=== PATIENT | male | born 1930 | race Caucasian/White ===

== ENCOUNTER 2017-01-08 21:52 | Inpatient (IN) ==
[2017-01-08] MEDS ORDERED: OFIRMEV 1000 MG/ISOTONIC SOLN 1,000 MG/100 ML BOTTLE IV ONE (22:05)
[2017-01-08] MEDS ORDERED: ZOFRAN IV ONE (22:05)
[2017-01-08] MEDS ORDERED: MORPHINE IV ONE (22:06)
[2017-01-08] MEDS: NS 1,000 ML IV ONE (22:25)
[2017-01-08] MEDS ORDERED: NS 1,000 ML IV ONE ×2 (22:49→23:42)
[2017-01-08] MEDS ORDERED: ZOSYN 3.375 GM/NS 3.375 GM/50 ML IVPB IV ONE (22:54)
[2017-01-08] MEDS ORDERED: VANCOMYCIN 1 GM/NS 1 GM/250 ML IVPB IV ONE (22:55)
[2017-01-08 23:21] LABS: BASO% 0.1 % (0.0-0.8); EOS# 0.02 X1000 (0.0-0.7); EOS% 0.2 % (0.0-10.0); HEMATOCRIT 25.8 % (42.0-52.0); HEMOGLOBIN 8.5 g/dL (14.0-18.0); IMM GRAN# 0.02 X1000 (0.0-0.04); IMM GRAN% 0.2 % (0.0-0.5); LYMPH# 0.62 X1000 (1.2-3.4); LYMPH% 5.9 % (20.5-51.1); MANUAL DIFF NEEDED? YES; MCH 25.1 PG (27-31); MCHC 32.9 g/dL (33-37); MCV 76.1 FL (81-99); MONO# 0.18 X1000 (0.11-0.59); MONO% 1.7 % (1.7-9.3); MPV 8.8 FL (7.4-10.4); NEUT% 91.9 % (42.2-75.2); PLT 826 X1000 (130-400); RBC 3.39 XMIL (4.7-6.1)
[2017-01-08] MEDS ORDERED: XYLOCAINE 2% JELLY UROJECT TOP ONE (23:30)
[2017-01-08] MEDS ORDERED: XYLOCAINE 2% JELLY UROJECT ONE (23:30)
[2017-01-08 23:35] LABS: ALBUMIN 2.8 g/dL (3.5-5.0); CALCIUM 8.1 mg/dL (8.8-10.2); POTASSIUM 4.4 mmol/L (3.5-5.1); TOTAL BILIRUBIN 0.3 mg/dL (0.20-1.00); TOTAL PROTEIN 5.4 g/dL (6.3-8.3)
[2017-01-08] MEDS ORDERED: HUMULIN R SUBQ ONE (23:41)
[2017-01-08] MEDS ORDERED: LEVOPHED 8 MG in D5 1/2 NS 250 ML IV SCH (23:45)
[2017-01-08 23:49] LABS: BANDS 28 % (0-1); EOS 1 % (1-10); HYPOCHROM 2+; LYMPHS 14 % (21-51); METAMYELOCYTES 2 %; MONO 2 % (1-9)
[2017-01-08 23:50] LABS: LARGE PLATELETS OCCASIONAL
--- NOTE | 2017-01-09 00:03 | PROVIDER DOCUMENTATION ---
This chart was entered by Jaylin Delacruz Scribe, acting as scribe for Urban Hector MD. HPI-Abdominal Pain/GI Problem - General Chief Complaint: Abdominal Pain Stated Complaint: abd pain Time Seen by Provider: 01/08/17 21:55 Source: patient, family Allergies/Adverse Reactions: Patient Allergies Allergy/AdvReac Type Severity Reaction Status Date / Time No Known Allergies Allergy Verified 01/08/17 22:02 Home Medications: Home Medication List Medication Instructions Recorded Confirmed Last Taken Type Dicyclomine [Bentyl] 20 mg PO DIRECTED 01/08/17 01/08/17 01/07/17 History Fenofibrate 160 mg PO DAILY 01/08/17 01/08/17 01/07/17 History Irbesartan [Avapro] 300 mg PO DAILY 01/08/17 01/08/17 01/07/17 History Lansoprazole [Prevacid] 30 mg PO DIRECTED 01/08/17 01/08/17 01/07/17 History Pitavastatin [Livalo] 2 mg PO DAILY 01/08/17 01/08/17 01/07/17 History Pregabalin [Lyrica] 100 mg PO BID 01/08/17 01/08/17 01/07/17 History - History of Present Illness-ABD Nature of Presenting Problems: PT IS A 86YOM PRESENTING TO THE ED C/O ABD PAIN. PTS STATES THAT PT HAS HAD ABD PAIN FOR SEVERAL MONTHS. PTS STATES THAT THEY SAW PCP ON SATURDAY AND STILL HASN'T GOTTEN ANY BETTER. PT STATES HE HAS HAD 3 LOOSE STOOLS TODAY AND NAUSEA. NO VOMITING AND FEVER WAS RECORDED UPON ARRIVAL. NO KNOWN KNOWLEDGE OF FEVER PRIOR. NO CP, SOB OR OTHER COMPLAINTS AT THIS TIME Abdominal Pain Onset Location: reports: generalized abdomen Pain Radiation: reports: no radiation Quality of Pain: reports: aching Severity in ED: reports: mild Onset/Duration: reports: gradual Timing: reports: still present Activities at Onset: reports: light activity Exposure to sick contacts?: No Modifying Factors: improves with: nothing Associated Symptoms: reports: diarrhea, fatigue, fever/chills, loss of appetite , malaise, nausea. denies: back/neck pain, chest pain, shortness of breath, pain with inspiration, vomiting Last BM: this evening Dark Stools Present?: reports: none noticed Rectal Bleeding: reports: none # of Diarrhea Episodes: 3 Rectal Pain: reports: none Emesis Description: reports: none Bruising or Bleeding Gums?: No Similar Symptoms Previously?: Yes Recently seen or treated by another doctor?: No Review of Systems - Adult - REVIEW OF SYSTEMS - ADULT Constitutional: reports: see HPI, chills, fever. denies: fatique Eyes: reports: no symptoms reported Ears, Nose, Mouth & Throat: reports: no symptoms reported Cardiovascular: reports: no symptoms reported Respiratory: reports: no symptoms reported Gastrointestinal: reports: see HPI, abdominal pain, diarrhea, nausea. denies: vomiting Genitourinary: reports: no symptoms reported Musculoskeletal: reports: no symptoms reported Integumentary: reports: no symptoms reported Neurological: reports: no symptoms reported Psychiatric: reports: no symptoms reported Endocrine: reports: no symptoms reported Hematologic/Lymphatic: reports: no symptoms reported Allergic/Immunologic: reports: no symptoms reported All Other Systems: Reviewed and Negative Past History - Adult - PAST MEDICAL HISTORY-ADULT Review of Records: reports: Old Records Reviewed, Nursing Assessment Review, Medications Reviewed, Social history reviewed & non-contributory. Major Childhood Illnesses: reports: denies history Cardiovascular: reports: denies history Respiratory: reports: denies history Gastrointestinal: reports: denies history Obstetrical/Gynecological: reports: denies history Genitourinary: reports: denies history Musculoskeletal: reports: denies history Neurological: reports: denies history Endocrine/Immune: reports: denies history Other Conditions: reports: denies history - IMMUNIZATION STATUS Childhood Immunizations: See Nurse Assessment Flu Vaccine: See Nurse Assessment - FAMILY HISTORY Family History: reviewed, not pertinent - SOCIAL HISTORY Smoking: non-smoker Substance Use: none/never Alcohol Use Frequency: never Living Situation: family Physical Exam-General - PHYSICAL EXAM-ADULT Initial Vital Signs Reviewed: Yes - CONSTITUTIONAL General Appearance: appears well, alert, mild distress - EYES Eyes: PERRL/EOMI, pink conjunctivae - HEAD, EARS, NOSE, MOUTH & THROAT HENMT: normocephalic/atraumatic, moist mucous membranes, normal ENT inspection, TMs normal, pharynx normal - NECK Neck: non-tender, full range of motion, supple, normal inspection - RESPIRATORY Respiratory: chest non-tender, lungs clear, normal breath sounds, no pleuratic chest pain, no accessory muscle use, respiratory distress, increased rate. negative: no respiratory distress - CARDIOVASCULAR Cardiovascular: normal peripheral pulses, no edema, no gallop, no JVD, no murmur , tachycardia. negative: regular rate, rhythm - GASTROINTESTINAL (ABDOMEN) Abdominal Exam: normal bowel sounds, soft, no organomegaly, no pulsatile mass, tenderness. 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 as tested, grossly normal, no motor/sensory deficits - PSYCHIATRIC Psych/Mental Status: normal mood/affect, normal thought content, normal thought process, oriented x 3 Progress - PLAN OF CARE/RESULTS Progress/Plan/Lab Results: Vital Signs - 8 hr 01/08/17 21:55 Temperature 103 F H Pulse Rate 135 H Respiratory Rate 49 H Blood Pressure 118/55 O2 Sat by Pulse Oximetry 88 L Orders Category Date Time Status Cardiac Monitoring DIRECTED Care 01/08/17 22:04 Active IV Insertion ORDERED Care 01/08/17 22:04 Active Notify MD of + Sepsis Screen NOW Care 01/08/17 22:04 Active ABDOMEN/PELVIS W/O CONTRAST [CT] Stat Exams 01/08/17 22:06 Ordered CHEST-PORTABLE [RAD] Stat Exams 01/08/17 22:05 Ordered BLOOD CULTURE [BLDCUL] Stat Lab 01/08/17 22:31 Ordered CBC WITH DIFF [HEME] Stat Lab 01/08/17 22:31 Ordered CK PROFILE [SP CHEM] Stat Lab 01/08/17 22:31 Ordered COMPREHENSIVE METABOLIC PANEL [CHEM] Stat Lab 01/08/17 22:31 Ordered LACTATE, PLASMA [CHEM] Stat Lab 01/08/17 22:[address]IME WITH INR [address] [COAG] Stat Lab 01/08/17 22:[address] [COAG] Stat Lab 01/08/17 22:31 Ordered TROPONIN T Stat Lab 01/08/17 22:[address] W/POSS RFLX CULT [URINALYSIS] Stat Lab 01/08/17 22:31 Ordered 0.9% Sodium Chloride Inj [Ns] 1,000 ml Med 01/08/17 22:05 Active IV 999 mls/hr 0.9% Sodium Chloride Inj [Ns] 1,000 ml Med 01/08/17 22:49 Active IV 999 mls/hr Acetaminophen [Ofirmev 1000 mg/Isotonic Soln] Med 01/08/17 22:05 Discontinued 1,000 mg in 100 ml IV NOW Morphine Med 01/08/17 22:06 Discontinued 4 mg IV NOW ONE Ondansetron [Zofran] Med 01/08/17 22:05 Discontinued 4 mg IV NOW ONE Oxygen Device Stat Oth 01/08/17 22:04 Active 2255 PT BLOOD PRESSURE HAS DROPPED 72/[address] HECTOR ORDERS 2 LARGE BORE IV WITH FLUID RESUSCITATION. Result Diagrams: 01/08/17 22:35 01/08/17 22:35 - REASSESSMENT Reassessment #1 Time Reassessed: 23:31 (PT STATES PN IS DOWN TO 7 FROM 10) Status: improving (PT NOT SHAKING BADLY FROM FEVER AND CHILLS STATES FEELING MILDLY BETTER) - XRAY 1 XRAY: Bilateral XRAY Study: Chest Impression: Normal (TAWNY) Departure - Departure Date of Disposition Decision: 01/09/17 Time of Disposition Decision: 00:02 DIAGNOSIS: Septic shock Disposition: ADMITTED INPATIENT 09 Certified Medical Emergency: Emergent Condition: Serious Referrals and Follow-Ups: Caesar Castro MD [Primary Care Provider] - - Critical Care Note This patient required my direct & personal management of CC.: Yes Total Time (mins): 90 (DR HECTOR) Critical Care Statement: This patient required my direct personal management to treat or rule out processes, the absence of which, could potentiallly result in sudden, clinically significant life or limb threatening deterioration. This chart was documented by the indicated scribe, (Jaylin Delacruz Scribe) and accurately reflects the services I performed and decisions made by me, Urban Hector MD, as attested by the provider's signature.
[2017-01-09] MEDS ORDERED: TYLENOL PO PRN (00:04)
[2017-01-09] MEDS ORDERED: NS 1,000 ML IV ONE ×2 (00:04→07:00)
[2017-01-09] MEDS ORDERED: ZOFRAN IV PRN ×2 (00:04→06:12)
[2017-01-09 00:15] LABS: INR 1.56 (0.86-1.15); PROTIME 18.9 Seconds (12.1-15.5)
[2017-01-09 00:16] LABS: PTT PL 30.3 Seconds (22.6-43.9)
[2017-01-09] MEDS ORDERED: HUMULIN R (PARKWAY) ONE (00:22)
[2017-01-09 01:42] LABS: URINE SOURCE CATH
[2017-01-09 01:45] LABS: BILIRUBIN URINE NEGATIVE (NEGATIVE); CLARITY VERY CLOUDY (CLEAR); COLOR YELLOW; GLUCOSE URINE NEGATIVE (NEGATIVE); URINE EPITHELIAL CELLS <10 /HPF (<10); URINE RBC <10 /HPF (<10); URINE WBC <10 /HPF (<10)
[2017-01-09 01:46] LABS: BLOOD URINE TRACE (NEGATIVE); LEUKOCYTES URINE TRACE (NEGATIVE); NITRITE URINE NEGATIVE (NEGATIVE); PROTEIN URINE 2+(100 mg/dL) mg/dL (NEGATIVE); URINE CULTURE PL NEEDED? YES; UROBILINOGEN URINE NORMAL
[2017-01-09] MEDS ORDERED: HURRICAINE SPRAY (DOSE) ONE (02:58)
[2017-01-09] MEDS ORDERED: ROBINUL ONE (03:02)
[2017-01-09] MEDS ORDERED: XYLOCAINE-MPF 2% ONE (03:02)
[2017-01-09] MEDS ORDERED: QUELICIN (DOSE) ONE (03:05)
[2017-01-09] MEDS ORDERED: FENTANYL ONE (03:07)
--- NOTE | 2017-01-09 03:21 | HISTORY AND PHYSICAL ---
ADMITTING DIAGNOSIS: Perforated hollow viscus. HISTORY OF PRESENT ILLNESS: This is an 86-year-old, male presenting with septic shock and abdominal pain to the emergency department at [facility]. He has been worked up by his primary care physician for pain for several months. He saw the primary care physician on Saturday and had not gotten any better. He did have a history of loose stools today and nausea but then developed severe abdominal pain. His pain had been mostly in the bilateral lower quadrants but is general abdominal pain now, described as aching and increasing in intensity. He has never had pain like this before. When he was evaluated in the emergency department again, he was found to need support with blood pressure medicine as he was hypotensive. He was started on fluid resuscitation with some minimal response. He was found to have a temperature of 103 degrees and a left shift, again concerning for a sepsis like picture. After his CT scan was found to have free air, I was asked to evaluate the patient. He still complained of some abdominal pain. PAST MEDICAL HISTORY: Includes hypertension, hypercholesterolemia, history of prostate cancer, history of a subdural hematoma requiring evacuation, history of neuropathy. PAST SURGICAL HISTORY: Includes prostate surgery, right knee surgery, and drainage of a subdural. HOME MEDICATIONS: Include Lyrica, a statin, Prevacid, Avapro, fenofibrate, Bentyl. ALLERGIES: None. SOCIAL HISTORY: Denies alcohol, tobacco, or illicit drugs. FAMILY HISTORY: Reviewed with patient but noncontributory. REVIEW OF SYSTEMS: A full 10 point review of systems was obtained and negative except as specified in the HPI. PHYSICAL EXAMINATION: VITAL SIGNS: Patient is currently afebrile. Temperature 97.4 degrees, pulse is regular at 87, blood pressure 93/38 on vasopressors, respiratory rate 29. GENERAL: male, looks stated age. Appears to be in some acute distress. HEENT: Normocephalic, atraumatic. Pupils equal, round, and reactive to light. Mucous membranes moist. Oropharynx benign. NECK: Supple. Trachea midline. CARDIOVASCULAR: Regular rate and rhythm. LUNGS: Grossly clear. ABDOMEN: Distended. Tender to palpation. Some rebound tenderness globally. EXTREMITIES: Moves all extremities. NEUROLOGIC: Grossly intact. SKIN: No signs of jaundice. VASCULAR: All extremities perfused. LABORATORY: White blood cell count is 10, hematocrit is 25, platelet count 826,000. INR is 1.56. Plasma lactate is 5.2. CT scan independently reviewed and radiology report reviewed. Patient does have free air. ASSESSMENT/PLAN: An 86-year-old, male with sepsis, likely from perforated hollow viscus. 1. Multiple medical comorbidities. At this time, I will have the hospitalist on board to manage his medical conditions. 2. Sepsis. At this time, he is in the process of being resuscitated. He has been started on broad-spectrum antibiotics. I suspect the sepsis is related to his perforated hollow viscus. 3. Perforated hollow viscus. At this time, patient likely has perforation either from his stomach or from his sigmoid colon. Regardless, discussed with him the need for surgical intervention. Also discussed with him the need for a central line. Discussed with him and his family the risks, benefits, and alternatives of those procedures. They agreed. We will transfer him over to [facility] for further definitive treatment and likely transfer to the intensive care unit postoperatively. cc: Carlos Peres MD
[2017-01-09] MEDS ORDERED: ZOSYN 3.375 GM/NS 3.375 GM/50 ML IVPB IV ONE (04:00)
[2017-01-09] MEDS ORDERED: CALCIUM CHLORIDE SYRINGE ONE (04:29)
[2017-01-09] MEDS ORDERED: NORCURON ONE (04:54)
[2017-01-09] MEDS ORDERED: NEO-SYNEPHRINE ONE (04:54)
[2017-01-09] MEDS ORDERED: SODIUM CHLORIDE 0.9% 40 ML ONE (04:54)
[2017-01-09 05:33] LABS: ALLEN TEST YES; BE -10.9 mmoll (-3.0-3.0); BLOOD TYPE ARTERIAL; DRAW SITE R RADIAL; MODALITY VENTILATOR; O2(CT) 12.9 mL/dL (15.0-23.0); PCO2(98.6) 47 mmHg (35-45); PO2(98.6) 309 mmHg (60-100); SAMPLE BLOOD; SAO2 97.5 % (95.0-100.0); THB 8.9 g/dL (11.5-17.4); pH(98.6) 7.17 (7.35-7.45)
[2017-01-09] MEDS ORDERED: SODIUM CHLORIDE 0.9% 10 ML ONE (05:39)
[2017-01-09] MEDS ORDERED: EPHEDRINE ONE (05:39)
[2017-01-09] MEDS ORDERED: DIPRIVAN 1% 1,000 MG/100 ML BOTTLE ONE (05:50)
--- NOTE | 2017-01-09 06:58 | OPERATIVE NOTE ---
PROCEDURE DATE: 01/09/2017 PREOPERATIVE DIAGNOSES: 1. Perforated hollow viscus. 2. Sepsis. POSTOPERATIVE DIAGNOSES: 1. 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 2. Questionable mesenteric mass. 3. Sepsis. PROCEDURES PERFORMED: 1. Ultrasound-guided right internal jugular vein central line. 2. Exploratory laparotomy. 3. Open right hemicolectomy. 4. Open sigmoid resection with end colostomy. SURGEON: Carlos Peres MD. TRAIN BRAKEMAN: None. ANESTHESIA: General endotracheal. INTRAOPERATIVE FINDINGS: Ultrasound showed a good caliber of the right internal jugular vein. The abdomen from the sigmoid colon was densely inflamed. There appeared to be some mesenteric mass of the small bowel that was intimately attached to the vasculature of the right colon. The sigmoid colon had essentially perforated into the distal ileum approximately 4 cm from the ileocecal valve. I was not able to identify the ureters on either side given the dense inflammatory response. There was a feculent peritonitis with significant intra- abdominal contamination. COMPLICATIONS: None at time of dictation. ESTIMATED BLOOD LOSS: 100 mL. SPECIMENS REMOVED: 1. Small-bowel. 2. Right colon. 3. Sigmoid colon with attached small bowel. 4. Abscess rind. 5. Mesenteric mass. DRAINS: A 10-Greek drain. BRIEF HISTORY: The patient is an 86-year-old, male presenting with peritonitis and free air. It was felt that the patient would benefit from an urgent operation. The risks, benefits, and alternatives were discussed. All questions were answered. It should be noted that the patient did come in on Levophed and was septic, and had resuscitation started in the emergency department. DESCRIPTION OF PROCEDURE: After informed consent was obtained, patient was brought to the operative theatre, transferred to the operating table, placed in the supine position. General endotracheal anesthesia was then performed without complication. A formal time- out was then performed, confirming patient, date, and procedure. All were in agreement. Attention was then given to the right neck. We prepped and draped the right neck in a sterile fashion. Using the ultrasound to identify the right internal jugular vein, I was able to cannulate it on the 1st pass. I passed a wire easily. We then serially dilated up in the Seldinger technique and placed a central line into the right internal jugular vein. I was able to aspirate blood easily. We secured it in place, connected to a CVP monitor which was consistent with central venous placement. Chest x-ray is still pending at the time of this dictation. We then placed a sterile dressing over this, and then prepped and draped the abdomen in a sterile fashion. We did a 2nd time-out for this procedure, confirming the patient, date, and procedure. All were in agreement. At that time, attention was turned to the abdomen. A standard midline incision was made through which we entered into the abdomen. We encountered free air and feculent peritonitis. There was a dense inflammatory process occurring down in the pelvis at the sigmoid colon. The distal ileum was intimately attached to the sigmoid colon. There was a perforation that was visible in the sigmoid colon. We were unable to dissect all the small bowel to the sigmoid colon. It was very inflamed. We had to resect the distal ileum to free up this area. During the dissection, we noticed that it had fistulized into the small bowel. We freed up the distal ileum and freed up the right colon all the way to the transverse colon by mobilizing the white line of Toldt. I used LigaSure for the mesentery. There was a significant mesenteric mass that we did remove. There was a concern this might be cancer versus a dense inflammatory process. To do this, we did compromise some additional small bowel which we had to resect. We then were able to see the significant perforation in the sigmoid colon once we had taken it off the right colon. We performed a stapled ileotransverse colon anastomosis with good results. The lumen was patent. The bowel was viable. We then turned our attention to mobilizing the sigmoid colon. We mobilized the white line of Toldt along the left side all the way down to the distal sigmoid colon. It appeared to be viable, felt a dense inflammatory process versus a mass in the sigmoid colon. We were able to mobilize it up. Fired a stapler across both those and removed the mass. It should be noted that I did not see either ureter given the dense inflammatory process but I stayed very close to the colon to prevent any potential injury. It was also densely attached to the anterior abdominal wall and potentially near the bladder but again, stayed closer to the colon side to prevent injury to these areas. Once we had removed the sigmoid colon, we placed 2 Prolene stitches on the distal end to margarito it for potential reanastomosis. We mobilized the sigmoid colon and the descending colon to allow for an ostomy creation. We irrigated out the abdomen copiously. We made our ostomy by selecting a spot on the lateral aspect of the abdominal wall at the lateral edge of the rectus muscle in the left lower quadrant. We made a circular hole in the skin down to the subcutaneous tissue to the fascia. I made a fascial incision. Through the fascia, we were able to get 2 fingerbreadths. We brought up the colon through this. It was free and mobile without undue tension. It was viable. We irrigated out the abdomen copiously. We did close the fascia with a running loop PDS and used michael to close the skin loosely. We did place a drain in the right lower quadrant down to the pelvis given the dense inflammatory process, potentially help draining the abscess. After we had closed the skin and secured the drain, we turned our attention to maturing the ostomy. It had sunk down into the subcutaneous tissue somewhat. After we had started maturing the ostomy, we noticed that it was in somewhat of a crease in the skin but the lumen was patent. It was viable. We were able to secure it in place with interrupted Vicryl. We placed a sterile dressing and ostomy appliance. The patient tolerated the procedure and was transferred to the ICU still in critical condition on the ventilator and still on pressors. We will continue the resuscitation process in the ICU. I did discuss this all with the family in the surgery waiting room. cc: MD ARIEL Virgen
[2017-01-09 07:07] LABS: HEMOGLOBIN 11.7 g/dL (14.0-18.0); MCH 26.5 PG (27-31); MCHC 33.4 g/dL (33-37); MCV 79.4 FL (81-99); MPV 8.5 FL (7.4-10.4); RBC 4.41 XMIL (4.7-6.1)
[2017-01-09 07:13] LABS: INR 1.69; PROTIME 18.3 Seconds (9.2-11.7)
[2017-01-09 07:23] LABS: ALBUMIN 1.6 g/dL (3.5-5.0); CALCIUM 7.2 mg/dL (8.8-10.2); MAGNESIUM 1.2 mg/dL (1.5-2.7); POTASSIUM 4.2 mmol/L (3.5-5.1); TOTAL BILIRUBIN 0.68 mg/dL (0.20-1.00); TOTAL PROTEIN 3.6 g/dL (6.3-8.3)
--- NOTE | 2017-01-09 07:28 | Diag Imaging Result Doc PS360 ---
ABDOMEN/PELVIS W/O CONTRAST - 01/08/2017 INDICATION: suprapubic pain, high fever TECHNIQUE: A CT dose reduction protocol was used. COMPARISON: None FINDINGS: There is a large amount of peritoneal free air. There is a small amount of ascites at the left colon and pelvis. 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 See image #[id number]. There is irregular wall thickening of this bowel loop. There is significant diverticulosis of the colon diffusely. Johnston catheter in the urinary bladder. Rectum is grossly normal. There is some hazy dependent atelectasis, otherwise the lung bases are clear. Heart size is probably borderline enlarged. No radiodense renal stones. No hydronephrosis or hydroureter. Abdominal organs are grossly normal. There are moderate degenerative changes of the spine. No acute or suspicious bony lesion. IMPRESSION: Large amount of free air and trace free fluid in the abdomen. This probably arises from perforation of an abnormal dilated small bowel loop with irregular wall thickening at the anterior pelvis, overlying the sigmoid colon. This is highly concerning for malignancy of the small bowel loop. This could be primary or extending from the adjacent sigmoid colon loop which closely contacts the small bowel loop. Electronically signed by Ezra Suárez 01/09/2017 7:25 AM
[2017-01-09 07:35] LABS: ALLEN TEST NO; BE -11.1 mmoll (-3.0-3.0); BLOOD TYPE ARTERIAL; DRAW SITE OTHER; METHB 0.1 % (0.0-1.5); O2(CT) 15.7 mL/dL (15.0-23.0); PCO2(98.6) 36 mmHg (35-45); PO2(98.6) 81 mmHg (60-100); SAMPLE BLOOD; SAO2 95.7 % (95.0-100.0); SRATE 16 BPM; THB 11.7 g/dL (11.5-17.4); TVOL 600 mL; pH(98.6) 7.24 (7.35-7.45)
[2017-01-09 07:36] LABS: MODALITY VENTILATOR
[2017-01-09 07:43] LABS: BLOOD TYPE ARTERIAL; SAMPLE BLOOD
--- NOTE | 2017-01-09 07:47 | Diag Imaging Result Doc PS360 ---
EXAM: CHEST-PORTABLE INDICATION: post op TECHNIQUE: One view COMPARISON: 01/08/2017 FINDINGS: There is a newly placed ET tube. The tip projects over the distal trachea and appears to be above the erinn in the expected position at about the T5 level. There is a newly placed right central line. The tip projects over the lower SVC superior to the atriocaval junction in the expected position. There is newly placed NG tube with the tip projecting over the stomach in the expected position. Inspiration is suboptimal. This is causing central vascular crowding. There is probably mild subsegmental atelectasis at the lung bases. There is no discrete pleural fluid collection or pneumothorax. Cardiac silhouette is stable. IMPRESSION: 1.Interval placement of ET tube, right central line, and NG tube as described. 2.Poor inspiration and likely mild bibasilar subsegmental atelectasis. Electronically signed by Adan Garcia 01/09/2017 7:45 AM
[2017-01-09] MEDS: NS 1,000 ML IV ONE (07:49)
[2017-01-09] MEDS ORDERED: LR 1,000 ML IV SCH ×2 (08:00)
[2017-01-09] MEDS: ZOSYN 3.375 GM/NS 3.375 GM/50 ML IVPB IV SCH ×3 (08:14→20:38)
--- NOTE | 2017-01-09 08:20 | CONSULTATION ---
DATE OF CONSULTATION: 01/09/2017 HISTORY OF PRESENT ILLNESS: This is an 86-year-old, patient of Dr. Caesar Castro, I believe, who presented to the emergency room early this morning. Found to have a perforated hollow viscus and presented with septic shock, abdominal pain at the emergency department at [place]. He had been worked up by his primary care physician for several months. He saw his primary care on Saturday, Dr. Caesar Castro, and had not gotten any better. Had a little history of loose stools yesterday and nausea which developed, severe abdominal pain. The pain is mostly in the bilateral lower quadrants but is general abdominal pain at the present time. Described as aching and increasing intensity. He has never had pain like this before. When he was evaluated the emergency department, he was found to have need of blood pressure support, was hypotensive. Started on fluid resuscitation. Some minimal response. Found to have temperature 103 degrees and a left shift. Again, concerning for sepsis-like picture. CT scan found free air. Was transferred over here. PAST MEDICAL HISTORY: 1. Hypertension. 2. Hypercholesterolemia. 3. History of prostate cancer. 4. History of subdural hematoma requiring evacuation. 5. History of neuropathy. PAST SURGICAL HISTORY: Includes prostate surgery, right knee surgery, drainage of subdural. HOME MEDICATION: He was on Lyrica and statin, Prevacid, Avapro, fenofibrate, Bentyl. ALLERGIES: None. SOCIAL HISTORY: Denies alcohol, tobacco or illicit drugs. FAMILY HISTORY: Reviewed and noncontributory. REVIEW OF SYSTEMS: Ten point system done by Dr. Peres on presentation. Unremarkable except for above. The patient is postop right now and intubated and sedated. Blood pressure running systolic in the 60s and 70s. Fluid is going with lactate Ringer's at 120 mL an hour. He was on some Levophed. We will continue Levophed. PHYSICAL EXAMINATION: Vital Signs: Temp 97.6 degrees, pulse 112, respirations 16, blood pressure 68/40. Heart: Sinus tachycardia. Abdomen: With a drain and colostomy bag. Negative bowel sounds. Extremities: Without clubbing, cyanosis, or edema. General: He is intubated. Weight 170 pounds. Output was 430 mL, and apparently he got probably over 12 L in the last 10 hours. LABORATORY DATA: On presentation white count was 10,000. This morning, it is 9540. Hematocrit 35. When he presented, it was 25. Platelet count 640,000. Chemistries: Creatinine 1.3. It was 1.5 when he presented. Potassium 4.2, chloride 114, bicarb 16, total protein 3.6, albumin 1.6. It was 2.8 yesterday. Lactate 5.2. ASSESSMENT AND PLAN: 1. Perforated hollow viscus. Found perforated sigmoid colon with fistula to the distal ileum, questionable mesenteric mass and presented with sepsis. Continue Levophed and IV fluids. He is intubated for respiratory support to allow us to give him fluid and try and get his blood pressure up. He had an ultrasound-guided right internal jugular central line placed, exploratory laparotomy, open right hemicolectomy and open sigmoid resection and end colostomy. He found an abscess rind and this was removed and a mesenteric mass. 2. History of hypertension. 3. History of hypercholesterolemia. 4. History of prostate cancer. 5. History of subdural hematoma requiring evacuation. 6. History of neuropathy, aware. cc: Raleigh Epstein MD
--- NOTE | 2017-01-09 08:26 | Diag Imaging Result Doc PS360 ---
EXAM: CHEST-PORTABLE INDICATION: fever TECHNIQUE: 2 views COMPARISON: None available. FINDINGS: There is air density underlying the right hemidiaphragm worrisome for extraluminal free abdominal gas. Correlation with CT abdomen/pelvis is recommended. There is minimal subsegmental atelectasis at the right lung base. The lungs are grossly clear, otherwise. There is no discrete pleural fluid collection or pneumothorax. The cardiomediastinal silhouette and central vasculature are grossly unremarkable. IMPRESSION: 1.Findings worrisome for extraluminal free abdominal gas. Correlation with CT is recommended. 2.Minimal subsegmental atelectasis at the right lung base. No definite acute chest pathology, otherwise. Electronically signed by Adan Garcia 01/09/2017 8:24 AM
[2017-01-09] MEDS ORDERED: DIPRIVAN 1% IV PRN (10:05)
--- NOTE | 2017-01-09 10:09 | CONSULTATION ---
DATE OF CONSULTATION: 01/09/2017 REQUESTING PHYSICIAN: Dr. Peres. REASON FOR CONSULTATION: Respiratory failure and shock. HISTORY OF PRESENT ILLNESS: Mr. Watkins was an 79-year-old white male, never smoker, who has been having difficulty with weight loss and abdominal pain. The patient presented to the emergency room last evening and quickly became hypotensive. CT scan of the abdomen and pelvis revealed free air in the abdomen and abnormal dilated small loop of bowel. The patient went to the operating room, and a perforated sigmoid colon was identified along with possible mesenteric mass. The patient underwent right hemicolectomy and lavage of feculent peritonitis. Portions of the small bowel were resected along with a mesenteric mass. The patient received approximately 6 L of resuscitation in the operating room. PAST MEDICAL HISTORY PROBLEM LIST: 1. Remote history of prostate cancer. 2. History of subdural hematoma in 2010. 3. Status post total knee arthroplasty 2008. 4. Hypertension. 5. Dyslipidemia. SOCIAL HISTORY: Patient is a never smoker. He consumes alcohol daily by report. FAMILY HISTORY: Not immediately available. REVIEW OF SYSTEMS: Cannot be obtained. PHYSICAL EXAMINATION: General: Reveals a well-developed, well-nourished, white male, who appears younger than his stated age. The patient is on mechanical ventilation. Vital signs: Blood pressure 112/72, heart rate 103, respiration rate 20, oxygen saturation 96%. The patient is on Levophed for hypotension. The patient is on propofol for sedation. HEENT: Pupils are equal and reactive. Oropharynx evaluation is limited with endotracheal tube in place. Neck: Supple. Chest: Reveals good air entry bilaterally. Cardiac Exam: Distant heart sounds. Normal S1, normal S2. Abdomen: Soft with surgical dressings in place. Organomegaly cannot be appreciated. Extremities: Revealed trace to 1+ edema. LABORATORIES/X-RAYS: Chest x-ray reveals atelectasis with central line in place, endotracheal tube is in place. NG tube is over the stomach. Arterial blood gas: A pH 7.24, pCO2 36, PO2 of 81. Chemistry: Sodium 140, potassium 4.2, chloride 114, bicarbonate 16, anion gap 10, BUN 18 and creatinine 1.3. White blood count 9.54, hemoglobin 11.0, platelet count 640,000. Total protein 3.6, albumin 1.6. Glucose 59. IMPRESSION: An 86-year-old white male with a perforated viscus, who has required significant amount of resuscitation for abdominal sepsis with gross contamination of the abdomen, acute hypoxemic respiratory failure, metabolic acidosis. He has evidence of significant/severe protein calorie malnutrition with an albumin of 1.6. RECOMMENDATIONS: 1. Continue full ventilatory support. 2. Continue volume resuscitation. We will use the central venous pressure to help guide resuscitation. 3. Albumin for oncotic pressure will be infused. 4. Levophed for hypotension. 5. Continue Diprivan for sedation. 6. Continue broad-spectrum antibiotics as you are doing. 7. Additional recommendations pending hospital course. cc: MD Raleigh Ding MD
[2017-01-09] MEDS: ALBUMIN 25% IV SCH ×3 (10:14→16:58)
[2017-01-09] MEDS: PEPCID IV SCH ×2 (10:14→20:39)
[2017-01-09] MEDS: SODIUM BICARBONATE 8.4% 100 MEQ in D5W 1,000 ML IV SCH ×2 (10:14→17:41)
[2017-01-09] MEDS: ALBUTEROL NEB INH SCH ×4 (11:28→22:58)
[2017-01-09] MEDS: DIPRIVAN 1% 1,000 MG/100 ML BOTTLE IV PRN ×2 (15:47→21:22)
[2017-01-09 16:11] LABS: ALLEN TEST NO; BE -8.4 mmoll (-3.0-3.0); BLOOD TYPE ARTERIAL; DRAW SITE OTHER; METHB 1.1 % (0.0-1.5); O2(CT) 14.8 mL/dL (15.0-23.0); PCO2(98.6) 26 mmHg (35-45); PO2(98.6) 146 mmHg (60-100); SAMPLE BLOOD; SAO2 97.5 % (95.0-100.0); SRATE 20 BPM; THB 10.7 g/dL (11.5-17.4); TVOL 600 mL; pH(98.6) 7.38 (7.35-7.45)
[2017-01-09 16:12] LABS: MODALITY VENTILATOR
[2017-01-09 17:30] LABS: ALBUMIN 2.2 g/dL (3.5-5.0); TOTAL BILIRUBIN 1.22 mg/dL (0.20-1.00); TOTAL PROTEIN 3.3 g/dL (6.3-8.3)
[2017-01-09 17:33] LABS: CALCIUM 6.5 mg/dL (8.8-10.2)
[2017-01-09] MEDS ORDERED: MAGNESIUM SULFATE 2 GM/S.W.I. 2 GM/50 ML IVPB IV ONE ×2 (17:48→22:00)
[2017-01-09] MEDS ORDERED: CALCIUM GLUCONATE 1 GM in NS 50 ML IV ONE (18:30)
[2017-01-09] MEDS: MORPHINE IV PRN (18:36)
[2017-01-09] MEDS: HEPARIN SUBQ SCH (20:39)
[2017-01-09] MEDS: LEVOPHED 8 MG in D5 1/2 NS 250 ML IV PRN (23:04)
[2017-01-10] MEDS: SODIUM BICARBONATE 8.4% 100 MEQ in D5W 1,000 ML IV SCH ×5 (01:45→18:47)
[2017-01-10] MEDS: ZOSYN 3.375 GM/NS 3.375 GM/50 ML IVPB IV SCH ×4 (02:03→21:43)
[2017-01-10] MEDS: ALBUTEROL NEB INH SCH ×6 (02:48→22:51)
[2017-01-10] MEDS: DIPRIVAN 1% 1,000 MG/100 ML BOTTLE IV PRN ×4 (03:22→22:30)
[2017-01-10 03:48] LABS: ALLEN TEST YES; BE -6.5 mmoll (-3.0-3.0); BLOOD TYPE ARTERIAL; DRAW SITE R RADIAL; METHB 0.4 % (0.0-1.5); O2(CT) 13.3 mL/dL (15.0-23.0); PCO2(98.6) 28 mmHg (35-45); PO2(98.6) 170 mmHg (60-100); SAMPLE BLOOD; SRATE 20 BPM; THB 9.4 g/dL (11.5-17.4); TVOL 600 mL
[2017-01-10 03:53] LABS: MODALITY VENTILATOR
[2017-01-10] MEDS: HEPARIN SUBQ SCH ×3 (04:56→21:44)
[2017-01-10 06:19] LABS: HEMATOCRIT 26.8 % (42.0-52.0); MCH 26.9 PG (27-31); MCHC 33.6 g/dL (33-37); MCV 80.2 FL (81-99); MPV 9.4 FL (7.4-10.4); RBC 3.34 XMIL (4.7-6.1)
[2017-01-10 06:32] LABS: ALBUMIN 2.1 g/dL (3.5-5.0); CALCIUM 7.2 mg/dL (8.8-10.2); POTASSIUM 3.8 mmol/L (3.5-5.1); TOTAL BILIRUBIN 1.38 mg/dL (0.20-1.00); TOTAL PROTEIN 3.9 g/dL (6.3-8.3)
[2017-01-10 06:41] LABS: MAGNESIUM 2.1 mg/dL (1.5-2.7)
--- NOTE | 2017-01-10 06:53 | PROGRESS NOTE ---
DATE: 01/10/2017 SUBJECTIVE: Discussed the case with the nurse from overnight. They had to go up slightly on his Levophed. He is still sedated on the ventilator. His urine output has increased. He was given albumin during the day. His GRACIELA output was initially high, but has slowed down. No real output from his ostomy at this point. OBJECTIVE: Vital Signs: Patient is currently afebrile. Temperature 98.1 degrees, pulse is 101, respiratory rate on the ventilator. Blood pressure 117/67, with the Levophed at 6 mcg. General: Sedated. Cardiovascular: Mildly tachycardic. Lungs: Referred airway noises. Abdomen: Soft, nondistended. Ostomy appears viable at this point. It has sunk down slightly on the skin, but has not retracted significantly. Mucosa appears viable. LABORATORY STUDIES: White blood cell count 15, hematocrit is 26, the platelet count 410,000. ABG reviewed. His base deficit is improving. It is currently 6.5. Reviewed labs from yesterday. His albumin was 2.2. Chest x-ray from this morning reviewed. ASSESSMENT AND PLAN: An 86-year-old male, status post right hemicolectomy and right sigmoid resection for perforated fistulizing sigmoid colon perforation. 1. Postoperative state. At this time, patient is still on the ventilator. Pulmonary is on board and managing. I defer the ventilator to the pulmonary team. At this point, I agree with intermittent albumin to help with oncotic pressure. His urine output has improved since he got the albumin. Hopefully, we can wean him off of his Levophed. 2. Sepsis. At this time, patient is currently on Levophed. Still has a leukocytosis and a source of intra-abdominal infection. He is on antibiotics appropriately. We need to continue current regimen of Zosyn. 3. Malnutrition. At this time, patient's albumin is 2.2. Given what I suspect will be a long recovery time, will go ahead and start him on TPN. He does have a central line. We will get a dietitian to manage. cc: MD Raleigh Virgen MD
--- NOTE | 2017-01-10 07:38 | Diag Imaging Result Doc PS360 ---
CHEST-PORTABLE - 01/10/2017 INDICATION: respiratory failure TECHNIQUE: COMPARISON: 01/09/2017 FINDINGS: Support lines and tubes are stable. Stable low lung volumes. Stable hazy atelectasis in the lung bases. No new or focal infiltrates. No pneumothorax or large effusion. Heart size is top normal. IMPRESSION: No complication or change from prior. Electronically signed by Ezra Suárez 01/10/2017 7:36 AM
[2017-01-10] MEDS: PEPCID IV SCH ×2 (08:07→21:44)
[2017-01-10] MEDS: MORPHINE IV PRN ×2 (09:39→16:19)
[2017-01-10] MEDS ORDERED: ALBUMIN 25% IV ONE (12:01)
[2017-01-10 13:09] LABS: MAGNESIUM 2.1 mg/dL (1.5-2.7); POTASSIUM 3.9 mmol/L (3.5-5.1); PREALBUMIN 3.8 mg/dL (20-40)
[2017-01-10] MEDS: HUMULIN R SUBQ SCH ×3 (15:02→21:44)
[2017-01-10] MEDS ORDERED: D10W 1,000 ML IV SCH (16:30)
[2017-01-10] MEDS ORDERED: TPN ELECTROLYTES 20 ML, MAGNESIUM SULFATE 5 MEQ, POTASSIUM CHLORIDE 25 MEQ, M.V.I.-12 1... IV SCH ×9 (17:00)
--- NOTE | 2017-01-10 18:36 | PROGRESS NOTE ---
DATE: 01/10/2017 SUBJECTIVE: Mr. Watkins is intubated and sedated. He feels fairly stable. OBJECTIVE: Vital Signs: Temperature is 98.5 degrees, pulse 106, respiration 20, blood pressure was 90/53. HEENT: Pupils were equal and round. Lungs: Clear anterior lateral. Cardiovascular: Regular rhythm and rate without murmur or S3. Abdomen: Soft. Skin: Warm and dry. Urine output: 2300 mL. LAB: White count 15,230, hematocrit 26, platelet count 410,000. Chemistries: Sodium 134, potassium 3.9, chloride 100, BUN 19, creatinine 1.4 which has come down. Blood sugar 314, 255, 274. ASSESSMENT AND PLAN: 1. Status post right hemicolectomy and right sigmoid resection for perforated and sigmoid colon perforation. 2. Respiratory failure, postoperative state, still on ventilator. Dr. Verduzco following. Continue intermittent albumin to help with third spacing oncotic pressure. 3. Urine output, watching this closely, renal function. Creatinine actually improved a little bit. 4. Sepsis. Was on Levophed. Adjust for blood pressure, wean as able. 5. Malnutrition. The patient's albumin is 2.2. Started him on total parenteral nutrition already. Orders. I do not see any significant change at this point. He is on Zosyn 3.375 mg IV, he got 1 dose, he is getting q.6h. He is on bicarbonate drip at 150 mL an hour. We did supplement some magnesium today. Calcium 7.0. I gave him 1 ampule of calcium gluconate. cc: Raleigh Epstein MD
[2017-01-10] MEDS: LEVOPHED 8 MG in D5 1/2 NS 250 ML IV PRN (22:31)
[2017-01-11] MEDS: ZOSYN 3.375 GM/NS 3.375 GM/50 ML IVPB IV SCH ×4 (01:57→19:49)
[2017-01-11] MEDS: SODIUM BICARBONATE 8.4% 100 MEQ in D5W 1,000 ML IV SCH ×4 (01:57→19:48)
[2017-01-11] MEDS: HUMULIN R SUBQ SCH ×6 (01:58→20:30)
[2017-01-11] MEDS: ALBUTEROL NEB INH SCH ×6 (02:49→23:13)
[2017-01-11] MEDS: DIPRIVAN 1% 1,000 MG/100 ML BOTTLE IV PRN ×2 (02:53→08:12)
[2017-01-11] MEDS ORDERED: NS 500 ML IV SCH (03:01)
[2017-01-11 04:19] LABS: ALLEN TEST YES; BE 4.8 mmoll (-3.0-3.0); BLOOD TYPE ARTERIAL; DRAW SITE R RADIAL; METHB 0.9 % (0.0-1.5); O2(CT) 13.2 mL/dL (15.0-23.0); PCO2(98.6) 30 mmHg (35-45); PO2(98.6) 135 mmHg (60-100); SAMPLE BLOOD; SAO2 96.9 % (95.0-100.0); SRATE 20 BPM; THB 9.6 g/dL (11.5-17.4); TVOL 600 mL
[2017-01-11 04:21] LABS: MODALITY VENTILATOR; pH(98.6) 7.56 (7.35-7.45)
[2017-01-11 05:48] LABS: HEMATOCRIT 26.8 % (42.0-52.0); MCH 26.9 PG (27-31); MCHC 33.6 g/dL (33-37); MCV 80.2 FL (81-99); RBC 3.34 XMIL (4.7-6.1)
[2017-01-11 06:13] LABS: MAGNESIUM 2.2 mg/dL (1.5-2.7)
[2017-01-11 06:15] LABS: ALBUMIN 1.7 g/dL (3.5-5.0); CALCIUM 7.1 mg/dL (8.8-10.2); POTASSIUM 3.9 mmol/L (3.5-5.1); TOTAL BILIRUBIN 1.38 mg/dL (0.20-1.00); TOTAL PROTEIN 3.8 g/dL (6.3-8.3)
--- NOTE | 2017-01-11 06:36 | PROGRESS NOTE ---
DATE: 01/11/2017 SUBJECTIVE: No major issues reported by the nursing staff. They have gone down on his Levophed requirement. He has had good urine output. Still no significant output from his ostomy, although it appears viable, his NG tube has minimal output also, he is currently on TPN. OBJECTIVE: Vital Signs: Patient is currently afebrile. Most recent heart rate in the 1 teens. Respiratory rate per the ventilator, blood pressure 107/51. General: Sedated on the ventilator. Cardiovascular: Mildly tachycardic. Lungs: Referred airway noises. Abdomen : Soft, nondistended. Incision was reviewed and examined. Appears to be doing okay. The ostomy appears to be viable at this point. It is sunken down slightly in the skin. LABORATORY: White blood cell count 15, hematocrit is 26, platelet count 352, 000. ABG reviewed. Of note, patient's base deficit has now turned to base excess. ASSESSMENT/PLAN: An 86-year-old, male status post right hemicolectomy and sigmoid resection for perforated, fistulized sigmoid colon perforation. 1. Postoperative state: At this time, patient is on the ventilator. Pulmonary is on board managing. His urine output has seemed to have improved. Hopefully, we can continue to wean him off the ventilator and off the Levophed. 2. Sepsis: At this time, patient is currently still on Levophed although it is decreasing. His leukocytosis is remaining stable. He is on antibiotics. 3. Malnutrition: At this time, patient is on total parenteral nutrition. I would like to hold off on any kind of enteral nutrition until we have got him off pressors, but hopefully this will be done soon and we can start him on p.o. intake via his NG tube. cc: MD Raleigh Virgen MD MTDD
[2017-01-11] MEDS: HEPARIN SUBQ SCH ×3 (06:45→20:14)
--- NOTE | 2017-01-11 07:25 | Diag Imaging Result Doc PS360 ---
EXAM: CHEST-PORTABLE HISTORY: respiratory failure TECHNIQUE: Erect AP portable at 0525 COMMENT: There is atelectasis present in both lung bases. There is a right internal jugular central venous catheter with its tip in the superior vena cava. There is an endotracheal tube with its tip just below the thoracic inlet and an NG tube with tip below the diaphragm. Compared to 01/10/2017 there has been no significant change. IMPRESSION: Bibasal or atelectasis. Electronically signed by Alban Allen 01/11/2017 7:23 AM
[2017-01-11] MEDS: PEPCID IV SCH ×2 (08:12→20:14)
[2017-01-11] MEDS ORDERED: ATIVAN IV PRN (08:59)
[2017-01-11] MEDS: MORPHINE IV PRN ×2 (09:06→13:18)
--- NOTE | 2017-01-11 10:13 | PROGRESS NOTE ---
DATE: 01/11/2017 SUBJECTIVE: Mr. Watkins is making pretty good urine output. Encourage his blood pressure. He is on a miniscule amount of Levophed. Blood pressures have been stabilized. I have not seen any output from his colostomy yet. OBJECTIVE: Temperature 97.6 degrees, pulse 104, respirations 20, blood pressure 93/47. Eyes: Pupils are equal, round, intubated, sedated. Lungs are clear anterolaterally. Cardiovascular: Regular rhythm and rate without murmur or S3. Abdomen is soft. I do not hear any bowel sounds at this point. Colostomy empty. No pedal edema. Urine output 5-1/2 L. LABORATORY DATA: White count 15,450. Hematocrit 26, platelet count 352,000. Sodium 137, potassium 3.9, chloride 101, bicarb 24. BUN 15, creatinine 1.4. Blood sugar 240, 187 and 178. Chest x-ray from this morning: Appears to be atelectasis present in both lung bases. Right internal jugular central venous catheter with its tip in superior vena cava. Endotracheal tube with its tip just below the thoracic inlet and NG tube below the diaphragm. ASSESSMENT AND PLAN: 1. Postoperative state. Perforated viscus. He had a right hemicolectomy and sigmoid resection for perforated fistula of sigmoid colon perforation. Wait on pathology. Questionable mass versus inflammatory process. 2. Sepsis. Continue present antibiotics. Leukocytosis persists and he remains afebrile. 3. Continue total parenteral nutrition. 4. Ventilatory dependent. Continue try and wean as able. REVIEW OF LABORATORY DATA: Serum creatinine is 1.4. Lastly, blood sugars 274, 241, 87, 175. The blood sugars appear to be appropriate. REVIEW OF ORDERS: On Zosyn 3.375 mg IV q.6. I think he is getting a bicarb drip at 150 mL an hour. This is an 8.4% of 100 mEq of bicarb in a liter. cc: Raleigh Epstein MD
[2017-01-11 11:21] LABS: ALLEN TEST YES; BLOOD TYPE ARTERIAL; DRAW SITE L RADIAL; METHB 0.5 % (0.0-1.5); O2(CT) 13.9 mL/dL (15.0-23.0); PCO2(98.6) 40 mmHg (35-45); PO2(98.6) 85 mmHg (60-100); SAMPLE BLOOD; THB 10.3 g/dL (11.5-17.4); pH(98.6) 7.47 (7.35-7.45)
[2017-01-11 11:23] LABS: MODALITY VENTILATOR
[2017-01-11] MEDS: HALDOL IV PRN ×3 (12:16→22:52)
--- NOTE | 2017-01-11 12:28 | Diag Imaging Result Doc PS360 ---
EXAM: CHEST-1 VIEW HISTORY: SOB TECHNIQUE: Portable sitting AP COMPARISON: Compared to study performed 5:25 AM FINDINGS: Increased density in the lung bases since the prior exam. This is likely due to atelectasis although there could be small underlying infiltrates. The left pleural effusion may also be slightly larger. No change in the right jugular line or in the nasogastric. I believe the endotracheal tube has been removed. IMPRESSION: Mild interval worsening.. Electronically signed by Lg Leonard 01/11/2017 12:26 PM
[2017-01-11] MEDS ORDERED: CARDIZEM IV ONE ×2 (13:02→17:11)
[2017-01-11] MEDS ORDERED: TPN ELECTROLYTES 20 ML, MAGNESIUM SULFATE 5 MEQ, POTASSIUM CHLORIDE 25 MEQ, M.V.I.-12 1... IV SCH ×9 (17:00)
[2017-01-11] MEDS ORDERED: CARDIZEM 100 MG/NS 100 MG/100 ML IVPB ONE (17:26)
[2017-01-11] MEDS ORDERED: CARDIZEM ONE (17:26)
[2017-01-11] MEDS: CARDIZEM 100 MG/NS 100 MG/100 ML IVPB IV SCH (17:27)
[2017-01-12] MEDS: MORPHINE IV PRN (00:08)
[2017-01-12] MEDS: HUMULIN R SUBQ SCH ×6 (00:46→22:07)
[2017-01-12] MEDS: ZOSYN 3.375 GM/NS 3.375 GM/50 ML IVPB IV SCH ×4 (01:29→20:49)
[2017-01-12] MEDS: SODIUM BICARBONATE 8.4% 100 MEQ in D5W 1,000 ML IV SCH ×3 (03:46→17:57)
[2017-01-12] MEDS: ALBUTEROL NEB INH SCH ×6 (03:50→23:09)
[2017-01-12 04:19] LABS: ALLEN TEST YES; BE 6.4 mmoll (-3.0-3.0); BLOOD TYPE ARTERIAL; DRAW SITE R RADIAL; PCO2(98.6) 35 mmHg (35-45); PO2(98.6) 137 mmHg (60-100); SAMPLE BLOOD; pH(98.6) 7.53 (7.35-7.45)
[2017-01-12 04:36] LABS: MODALITY CANNULA
[2017-01-12] MEDS: HEPARIN SUBQ SCH ×3 (05:57→21:58)
--- NOTE | 2017-01-12 06:13 | Diag Imaging Result Doc PS360 ---
EXAM: CHEST-PORTABLE HISTORY: respiratory failure TECHNIQUE: Semiupright portable AP COMPARISON: 01/11/2017 FINDINGS: No change in the right jugular line or in the nasogastric tube. Poor inspiratory effort. Mild worsening in the pulmonary edema. Likely atelectasis in the left base although there could be an underlying infiltrate. There is also small effusion. Heart is mildly prominent. IMPRESSION: Mild interval worsening since the prior exam. Electronically signed by Lg Leonard 01/12/2017 6:10 AM
[2017-01-12] MEDS: CARDIZEM 100 MG/NS 100 MG/100 ML IVPB IV SCH (06:30)
[2017-01-12 07:10] LABS: HEMOGLOBIN 9.8 g/dL (14.0-18.0); MCH 26.1 PG (27-31); MCHC 33.8 g/dL (33-37); MCV 77.3 FL (81-99); MPV 9.4 FL (7.4-10.4); RBC 3.75 XMIL (4.7-6.1)
[2017-01-12 07:16] LABS: AGAP 9; ALBUMIN 1.8 g/dL (3.5-5.0); ALKALINE PHOSPHATASE 49 U/L (32-122); BUN 11 mg/dL (8-22); CALCIUM 7.5 mg/dL (8.8-10.2); CHLORIDE 98 mmol/L (98-107); COSMO 272; GOT 17 U/L (10-34); GPT 11 U/L (10-44); POTASSIUM 3.4 mmol/L (3.5-5.1); SODIUM 134 mmol/L (136-145); TCO2 27 mmol/L (25-35); TOTAL BILIRUBIN 2.35 mg/dL (0.20-1.00); TOTAL PROTEIN 4.1 g/dL (6.3-8.3)
[2017-01-12] MEDS ORDERED: SODIUM CHLORIDE 0.9% 10 ML ONE (07:56)
[2017-01-12] MEDS ORDERED: STERILE WATER INJ. INJ ONE (08:03)
[2017-01-12] MEDS ORDERED: GEODON IM ONE (08:03)
[2017-01-12] MEDS: HALDOL IV PRN (08:10)
[2017-01-12] MEDS: PEPCID IV SCH (08:11)
[2017-01-12] MEDS: LIPOSYN 20% 250 ML IV SCH (08:16)
[2017-01-12] MEDS ORDERED: POTASSIUM PHOSPHATE 40 MEQ in NS 250 ML IV ONE (10:00)
--- NOTE | 2017-01-12 11:13 | PROGRESS NOTE ---
DATE: 01/12/2017 SUBJECTIVE: Mr. Watkins had a rough night. Did not sleep much. He was confused and delirious. Moving all extremities well. He is much more calm today. They did give him Haldol through the night. He also had an increased heart rate that appears to be predominantly atrial fibrillation. He does have some PVCs in there. OBJECTIVE: Vital Signs: Temperature 98.6 degrees, pulse 133, respirations 22, blood pressure 104/64. Neck: CVP less than 6 cm. Lungs: Clear in all lung tejeda. Cardiovascular: Regular rhythm and rate, without murmur or S3. Abdomen: Soft. Skin: Warm and dry. URINE OUTPUT: 6.5 L. LABORATORY AND IMAGING: Blood sugars 214, 176, and 205. White count 14,460, hematocrit 29, platelet count 347,000. Sodium 134, potassium 3.4, chloride 98, bicarbonate 27, BUN 11, creatinine 1.1, albumin 1.8. Chest x-ray: Mild interval worsening from prior exam. Right jugular line unchanged. Nasogastric tube unchanged. Poor inspiratory effort. Mild worsening pulmonary edema. Likely atelectasis in left base, although could be underlying infiltrate. There is also a small fusion. ASSESSMENT AND PLAN: 1. Postoperative state perforated viscus, right hemicolectomy, had a sigmoid resection, perforated fistula, sigmoid perforation. Appears to be healing. White count is coming down. 2. Presented with sepsis. Blood pressure improved. Continue present antibiotics. 3. On total parental nutrition. 4. Extubated. Respiratory status looks good. Watch his chest x-ray and clinically. A little bit of atelectasis appreciated in the left base. Could be an underlying infiltrate. Continue present antibiotics. 5. Delirium, hospital psychosis. It will help as we are able to sit him up and cut back on his medications. 6. Atrial fibrillation. I am going to ask Cardiology to come and follow. I suspect the atrial fibrillation is secondary to multifactorial, increased adrenergic state and inflammatory state. He is on Cardizem drip. Continue Zosyn. He is on Pepcid 20 mg IV q.12 hours and I would like to see if maybe we can get him on p.o. as soon as possible. Get rid of the antihistamine. cc: Raleigh Epstein MD
--- NOTE | 2017-01-12 13:46 | PROGRESS NOTE ---
DATE: 01/12/2017 SUBJECTIVE: Mr. Watkins is an 86-year-old white male status post open urgent right colon resection and end colostomy per Dr. Peres for intraabdominal contamination. He has a GRACIELA drain in place and it is draining mostly serous fluid. He has a parenteral nutrition going in in addition to antibiotics. He is confused. He is tachycardic but his blood pressure is satisfactory. NG and Johnston catheter tubes are in place. PLANS: Will stop his maintenance IV fluids and will continue to support him with TPN and antibiotics. He has had no output from his ostomy. cc: MD Raleigh Dior MD
[2017-01-12] MEDS ORDERED: LOPRESSOR IV ONE (14:17)
[2017-01-12] MEDS ORDERED: CORDARONE 150 MG/D5W 150 MG/100 ML IV.SOLN IV ONE (14:32)
[2017-01-12] MEDS ORDERED: CORDARONE 360 MG/D5W 360 MG/200 ML IV.SOLN IV ONE (15:00)
--- NOTE | 2017-01-12 15:03 | CONSULTATION ---
DATE OF CONSULTATION: 01/12/2017 IMPRESSION: 1. Postoperative atrial fibrillation with rapid ventricular rate. 2. Status post emergency laparotomy for management of perforated sigmoid colon with fistula to distal ileum. Patient underwent right hemicolectomy and open sigmoid resection with end- colostomy. There was associated fecal peritonitis. 3. Hypertension. 4. Hypercholesterolemia. 5. History of prostate cancer. 6. History of subdural hematoma requiring evacuation. RECOMMENDATIONS: 1. Given persistent tachycardia on intravenous Cardizem, favor adding switching to intravenous amiodarone. 2. Utilize intravenous metoprolol on an as-needed basis to prevent excessive sustained tachycardia. 3. Echocardiography, once heart rate better controlled. HISTORY: This 86-year-old white male with past history of hypertension and hypercholesterolemia was recently admitted with acute abdomen. He is status post exploratory laparotomy with right hemicolectomy and open sigmoid resection with establishment of a colostomy. He had frequent peritonitis noted. He initially presented with recent loose stools and nausea, followed by severe abdominal pain. Abdominal pain was in the bilateral lower quadrants and was progressively worsening. He was found to have an acute abdomen along with evidence of sepsis. He had emergency laparotomy with right hemicolectomy and open sigmoid resection and establishment of a colostomy. He has been in the intensive care unit since then. He was extubated yesterday. Yesterday afternoon he started to have increasing heart rate and what appears to have been sinus tachycardia. At some point, overnight he converted to atrial fibrillation with persistent rapid heart rate. Intravenous Cardizem has been initiated, but he continues to have tachycardia. He has had some confusion and delirium. His family is not aware of any previous cardiac problems. PAST MEDICAL HISTORY: 1. Hypertension. 2. Hypercholesterolemia. 3. Prostate cancer. 4. History of previous subdural hematoma requiring evacuation. 5. Neuropathy. PAST SURGICAL HISTORY: Also includes previous prostate surgery, right knee surgery, and drainage of subdural hematoma. ALLERGIES: No known drug allergies. MEDICATIONS PRIOR TO ADMISSION: As listed. SOCIAL HISTORY: He is . He drinks one alcoholic beverage daily, but has not felt like drinking any alcoholic beverages for the last several days. He does not smoke. FAMILY HISTORY: Negative for premature coronary disease. REVIEW OF SYSTEMS: Not reliably obtainable given patient's confusion and delirium. PHYSICAL EXAMINATION: General: An elderly white male in no distress. Vital Signs: As recorded. It is noteworthy he has a heart rate of 150-160 beats per minute with ECG monitor showing atrial fibrillation and rapid ventricular rate. HEENT: Extraocular movements appear intact. Mucous membranes appear somewhat dry. Neck: Supple without discernible jugular venous distention. Chest: Clear to auscultation. Cardiac: Reveals an irregular tachycardia without appreciable murmur or gallop. Abdomen: Soft. Bowel sounds are not audible. Extremities: Warm without edema. Neurologic: Reveals her to be awake, but confused. Moves all 4 extremities equally well. PERTINENT DATA: Twelve lead EKG demonstrates atrial fibrillation with rapid ventricular rate and left axis deviation. Nonspecific T-wave abnormalities demonstrated. cc: MD Raleigh Hollins MD
[2017-01-12] MEDS: TPN ELECTROLYTES 20 ML, MAGNESIUM SULFATE 5 MEQ, POTASSIUM CHLORIDE 25 MEQ, M.V.I.-12 1... IV SCH ×9 (16:41)
[2017-01-12] MEDS ORDERED: GEODON IM PRN (16:44)
[2017-01-12] MEDS ORDERED: STERILE WATER INJ. INJ PRN (16:44)
[2017-01-12] MEDS ORDERED: CORDARONE 540 MG in D5W 289.2 ML IV ONE (21:00)
[2017-01-13] MEDS: LOPRESSOR IV PRN ×4 (01:36→22:42)
[2017-01-13] MEDS: HUMULIN R SUBQ SCH ×6 (01:36→20:50)
[2017-01-13] MEDS: ZOSYN 3.375 GM/NS 3.375 GM/50 ML IVPB IV SCH ×4 (01:36→20:24)
[2017-01-13] MEDS: ALBUTEROL NEB INH SCH ×6 (03:10→23:34)
[2017-01-13] MEDS: ATIVAN IV PRN ×2 (03:23→22:42)
[2017-01-13] MEDS: HALDOL IV PRN ×2 (03:24→22:43)
[2017-01-13 04:22] LABS: ALLEN TEST YES; BE 6.2 mmoll (-3.0-3.0); BLOOD TYPE ARTERIAL; DRAW SITE R RADIAL; METHB 0.5 % (0.0-1.5); MODALITY CANNULA; O2(CT) 13.2 mL/dL (15.0-23.0); PCO2(98.6) 36 mmHg (35-45); PO2(98.6) 77 mmHg (60-100); SAMPLE BLOOD; SAO2 96.1 % (95.0-100.0); THB 9.8 g/dL (11.5-17.4); pH(98.6) 7.52 (7.35-7.45)
[2017-01-13 04:32] LABS: HEMATOCRIT 27.9 % (42.0-52.0); HEMOGLOBIN 9.5 g/dL (14.0-18.0); MCHC 34.1 g/dL (33-37); MCV 76.2 FL (81-99); MPV 9.8 FL (7.4-10.4); RBC 3.66 XMIL (4.7-6.1)
[2017-01-13 04:51] LABS: MAGNESIUM 1.8 mg/dL (1.5-2.7)
[2017-01-13 04:55] LABS: AGAP 9; ALBUMIN 1.8 g/dL (3.5-5.0); ALKALINE PHOSPHATASE 47 U/L (32-122); BUN 11 mg/dL (8-22); CALCIUM 7.2 mg/dL (8.8-10.2); CHLORIDE 99 mmol/L (98-107); COSMO 272; GOT 18 U/L (10-34); GPT 11 U/L (10-44); POTASSIUM 3.5 mmol/L (3.5-5.1); SODIUM 135 mmol/L (136-145); TCO2 27 mmol/L (25-35); TOTAL BILIRUBIN 1.88 mg/dL (0.20-1.00); TOTAL PROTEIN 3.5 g/dL (6.3-8.3); TRIGLYCERIDES 163 mg/dL (39-160)
[2017-01-13] MEDS: SODIUM BICARBONATE 8.4% 100 MEQ in D5W 1,000 ML IV SCH ×3 (05:00→16:48)
[2017-01-13] MEDS: HEPARIN SUBQ SCH ×3 (05:04→20:24)
--- NOTE | 2017-01-13 07:55 | Diag Imaging Result Doc PS360 ---
EXAM: CHEST-PORTABLE - 01/13/2017 HISTORY: respiratory failure TECHNIQUE: Portable chest 0525 COMPARISON: None. FINDINGS: Nasogastric tube and central venous catheter remain in place. Heart size appears upper normal and stable. Inspiration is mildly shallow. There is apparent hazy pulmonary edema similar to the prior exam. There is atelectasis at left base similar to the prior exam. There is no large pleural effusion or pneumothorax identified. IMPRESSION: Stable exam compared to prior. Electronically signed by Ricky Mccrary 01/13/2017 7:53 AM
[2017-01-13] MEDS: LIPOSYN 20% 250 ML IV SCH (08:47)
[2017-01-13] MEDS: MORPHINE IV PRN ×2 (10:02→15:57)
[2017-01-13] MEDS ORDERED: CORDARONE 150 MG/D5W 150 MG/100 ML IV.SOLN IV ONE (10:21)
[2017-01-13] MEDS ORDERED: CORDARONE 360 MG/D5W 360 MG/200 ML IV.SOLN IV ONE (11:00)
--- NOTE | 2017-01-13 11:16 | PROGRESS NOTE ---
DATE: 01/13/2017 SUBJECTIVE: The patient is presently sedated after receiving intravenous morphine for pain. He is intermittently agitated and confused according to family. He has demonstrated intermittent atrial fibrillation with rapid ventricular rate and is receiving supplemental intravenous metoprolol. OBJECTIVE: Vital Signs: Blood pressure 141/85, heart rate 102, oxygen saturation 100% on nasal cannula oxygen at 3 L. Neck: There is no significant jugular venous distention. Chest: Clear to auscultation. Cardiac Examination: Reveals an irregular rate and rhythm with frequent extrasystole. Abdomen: Soft. Bowel sounds are audible. Extremities: There is no evidence of peripheral edema. IMPRESSION: 1. Postoperative episodes of atrial fibrillation with rapid ventricular rate. 2. Status post emergency laparotomy for management of perforated sigmoid colon and fistula to distal ileum. The patient underwent right hemicolectomy and open sigmoid resection with end colostomy. This was associated with fecal peritonitis. 3. Hypertension. 4. Hypercholesterolemia. 5. History of subdural hematoma in the past requiring evacuation. RECOMMENDATIONS: 1. Continue intravenous amiodarone and supplement. 2. Continue metoprolol as needed basis. cc: MD Raleigh Hollins MD
--- NOTE | 2017-01-13 11:37 | PROGRESS NOTE ---
DATE: 01/13/2017 SUBJECTIVE: Mr. Watkins is status post colon resection and end colostomy. He is in the ICU, sedated. Yesterday he developed atrial fibrillation with a rapid rate and it has been controlled by our cardiologists. He is still having a lot of yellow serous fluid from his abdomen through the drain but there is no evidence of purulence or fecal material in the drain. His abdomen is mostly soft. He has had no output from his ostomy. OBJECTIVE: His heart rate is 86, blood pressure 141/85, O2 saturation is 100%. Afebrile. Urine output is adequate. He is receiving TPN. His white blood cell count went from 14 to 8. Hematocrit is 28%. Electrolytes are within normal limits. BUN is a 11. Creatinine is 0.9. Liver function tests were okay. PaO2 is 77, pH is 7.52. His lactate is 1.4. IMPRESSION: I think he has improved clinically from yesterday. We need a continue his support. He is on IV Zosyn. cc: MD Raleigh Dior MD
[2017-01-13] MEDS ORDERED: POTASSIUM PHOSPHATE 40 MEQ in NS 250 ML IV ONE (12:30)
--- NOTE | 2017-01-13 12:36 | PROGRESS NOTE ---
DATE: 01/13/2017 SUBJECTIVE: He has had a little more her delirium last night. Otherwise remained stable. OBJECTIVE: Vital Signs: Afebrile. Temperature 98.6 degrees, pulse 90, respirations 30, blood pressure 109/45. HEENT: Pupils are equal, round. Respiratory: Lungs are clear in all lung tejeda. Cardiovascular: Regular rhythm and rate without murmur or S3. Abdomen: Soft. Skin is warm and dry. Urine output almost 9 L. LABORATORY DATA: Reviewed labs from this morning. White count 8770, hematocrit 27, platelet count 334,000. Sodium 135, potassium 3.5, chloride 99, BUN 11. Creatinine 0.9, blood sugar 155, 148. Phosphorus was 2.6. ASSESSMENT: 1. Postoperative state perforated viscus right hemicolectomy, perforated fistula, sigmoid perforation. Appears to be healing well. Pathology still pending. 2. Presented with sepsis and that is better. Blood pressure better. Continue present antibiotics. 3. On total parenteral nutrition. 4. Respiratory failure. Extubated now. 5. Having some trouble with delirium and sundowning. 6. Atrial fibrillation. Rate controlled. Cardiology involved. Dr. Cagle. He has a history of subdural hematoma in the past requiring evacuation. He is on IV amiodarone and continues metoprolol as needed. PLAN: Blood sugars appear to be well-controlled. Renal function is doing well. I looked over orders and I do not see any change. cc: Raleigh Epstein MD
[2017-01-13] MEDS: TPN ELECTROLYTES 20 ML, MAGNESIUM SULFATE 5 MEQ, POTASSIUM CHLORIDE 25 MEQ, M.V.I.-12 1... IV SCH ×9 (16:48)
[2017-01-13] MEDS ORDERED: CORDARONE 540 MG in D5W 289.2 ML IV ONE (17:00)
[2017-01-14] MEDS: HUMULIN R SUBQ SCH ×6 (01:27→20:43)
[2017-01-14] MEDS: SODIUM BICARBONATE 8.4% 100 MEQ in D5W 1,000 ML IV SCH ×3 (02:31→15:50)
[2017-01-14] MEDS: ZOSYN 3.375 GM/NS 3.375 GM/50 ML IVPB IV SCH ×4 (02:32→20:42)
[2017-01-14] MEDS: ALBUTEROL NEB INH SCH ×6 (03:24→23:10)
[2017-01-14] MEDS: ATIVAN IV PRN ×4 (03:35→18:21)
[2017-01-14] MEDS: LOPRESSOR IV PRN (03:35)
[2017-01-14 04:26] LABS: ALLEN TEST YES; BE 7.5 mmoll (-3.0-3.0); BLOOD TYPE ARTERIAL; DRAW SITE R RADIAL; METHB 0.3 % (0.0-1.5); O2(CT) 12.9 mL/dL (15.0-23.0); PCO2(98.6) 39 mmHg (35-45); PO2(98.6) 75 mmHg (60-100); SAMPLE BLOOD; SAO2 95.6 % (95.0-100.0); THB 9.6 g/dL (11.5-17.4); pH(98.6) 7.51 (7.35-7.45)
[2017-01-14 04:27] LABS: MODALITY CANNULA
[2017-01-14 06:05] LABS: HEMATOCRIT 26.5 % (42.0-52.0); MCH 26.7 PG (27-31); MCV 78.6 FL (81-99); MPV 9.8 FL (7.4-10.4); RBC 3.37 XMIL (4.7-6.1)
[2017-01-14 06:31] LABS: AGAP 11; ALBUMIN 1.6 g/dL (3.5-5.0); ALKALINE PHOSPHATASE 48 U/L (32-122); BUN 13 mg/dL (8-22); CALCIUM 7.3 mg/dL (8.8-10.2); CHLORIDE 94 mmol/L (98-107); COSMO 266; GOT 16 U/L (10-34); GPT 10 U/L (10-44); MAGNESIUM 1.8 mg/dL (1.5-2.7); POTASSIUM 3.6 mmol/L (3.5-5.1); SODIUM 132 mmol/L (136-145); TCO2 27 mmol/L (25-35); TOTAL PROTEIN 3.5 g/dL (6.3-8.3)
--- NOTE | 2017-01-14 06:34 | PROGRESS NOTE ---
DATE: 01/14/2017 SUBJECTIVE: The patient was extubated over the weekend. He is doing okay. He does have some sundowning. No other major issues reported by the nursing staff. He still on amiodarone, TPN, and bicarb. OBJECTIVE: Vital Signs: Patient is currently afebrile. Most recent temperature 97.8 degrees, pulse 90, blood pressure 124/77. General Examination: Resting. Cardiovascular: Looks majority normal sinus rhythm but there are occasional PACs. It is possible that he is in atrial fibrillation but I think I see a P complex in the waveform analysis. Lungs: Some coarse sounds. Abdomen: Soft, nondistended. Ostomy appears viable. Incisions healing okay. GRACIELA drain with serous fluid. He has had almost a half a liter out of his Ezequiel-Jaeger drain. Is and Os: Urine output is noted. It does not seem bloody. Laboratory: ABG reviewed. ASSESSMENT/PLAN: An 86-year-old, male status post right hemicolectomy and sigmoid resection for perforated fistulized sigmoid colon. 1. Postoperative state. At this time, patient is off the ventilator. He is doing relatively well. His overall clinical status appears to be improving. His urine output is okay. He does have a significant amount of drainage coming from his Ezequiel-Jaeger drain. We will check a Ezequiel-Jaeger creatinine on it. His urine output is nonbloody. I suspect there is a low possibility of ureter or bladder injury but given how densely inflamed everything was, I could not visualize his ureter or bladder so we will check it just to be safe. 2. Sepsis. At this time, patient is off of pressors. He is still on Zosyn which I would recommend continuing, given his significant degree of intra-abdominal contamination. I think overall his sepsis like picture is improving, if not resolved. 3. Malnutrition. At this time, the patient is on total parenteral nutrition. Given his extubated status over the weekend, I will start tube feeds. We will start with Glucerna. We will ask the dietitian to adjust. cc: MD Raleigh Virgen MD
--- NOTE | 2017-01-14 06:48 | EKG Report ---
Test Performed on : 01/12/2017 2:13:35 PM Test Reason : NO ORDER Blood Pressure : / mmHG Vent. Rate : 154 BPM Atrial Rate : 127 BPM P-R Int : 000 ms QRS Dur : 104 ms QT Int : 302 ms P-R-T Axes : 000 -41 090 degrees QTc Int : 483 ms Atrial fibrillation. with rapid ventricular response. with premature ventricular or aberrantly condu cted complexes. Left axis deviation Abnormal ECG When compared with ECG of 12-JAN-2017 14:12, (Unconfirmed) No significant change was found Confirmed by Lyndsey Rushing MD ([id number]) on 01/14/2017 10:17:25 AM
--- NOTE | 2017-01-14 06:56 | EKG Report ---
Test Performed on : 01/11/2017 4:57:12 PM Test Reason : TACHY Blood Pressure : / mmHG Vent. Rate : 141 BPM Atrial Rate : 141 BPM P-R Int : 000 ms QRS Dur : 104 ms QT Int : 280 ms P-R-T Axes : 000 -42 086 degrees QTc Int : 428 ms Supraventricular tachycardia. Left axis deviation Abnormal ECG No previous ECGs available Confirmed by Lyndsey Rushing MD ([id number]) on 01/14/2017 10:16:46 AM
--- NOTE | 2017-01-14 07:17 | Diag Imaging Result Doc PS360 ---
EXAM: CHEST-PORTABLE HISTORY: respiratory failure TECHNIQUE: Erect AP portable at 0520 COMMENT: There is a right internal jugular central venous catheter with its tip in the superior vena cava. There is an NG tube with its passes below the diaphragm. There is hazy pulmonary edema over the lung bases bilaterally. There is platelike atelectasis in the lingula. There may also be atelectasis or pneumonia in the left lower lobe behind the heart. There may be slight improvement in the pulmonary edema particularly over the left heart border which is more visible than it was. IMPRESSION: Slightly improved pulmonary edema. Otherwise stable since 01/13/2017. Electronically signed by Alabn Allne 01/14/2017 7:15 AM
[2017-01-14] MEDS: HEPARIN SUBQ SCH ×3 (07:20→20:42)
[2017-01-14] MEDS: LIPOSYN 20% 250 ML IV SCH (07:59)
--- NOTE | 2017-01-14 09:13 | PROGRESS NOTE ---
DATE: 01/14/2017 SUBJECTIVE: Mr. Watkins has had a rough night again, having delirium, agitation, requiring wrist restraints. Seems to do better during the day. Breathing appears to be comfortable. Blood pressure doing well. Still appears to be in atrial fibrillation with multiple PACs. OBJECTIVE: Vital signs: Temp 97.8 degrees, pulse 117, respirations 22, blood pressure 124/77. Neck: CVP appears less than 6 cm. Lungs: Clear in all lung tejeda. Cardiovascular: Regular rhythm and rate without murmur or S3. His weight is up to 203. Intake and output: Urine output was over 3 L, almost 4 L output. LAB: White count 9,940, hematocrit is 26, MCV of 78, platelet count 343,000. Chemistry: Sodium 132, potassium 3.6, chloride 94, BUN 13, creatinine 0.9, blood sugar 156, 151, 116. Magnesium 1.8, total bilirubin 1.8, AST 16, ALT 10, albumin 1.6. ASSESSMENT AND PLAN: 1. Postoperative state, status post right hemicolectomy and sigmoid resection for perforated fistula of sigmoid colon. Doing relatively well. Still some delirium at night but blood pressure and urine output look good. It is encouraging. Ezequiel-Jaeger drain with a good amount of drainage. Going to check the creatinine on the Ezequiel-Jaeger drain. I suspect there is a low possibility of urine or bladder injury but given the density and inflammation, Dr. Peres cannot visualize his ureter or bladder, so we will check the creatinine from the Ezequiel-Jaeger drain. 2. Sepsis, better. Blood pressure better. Continue present antibiotics. 3. Malnutrition. Getting NG feeding. 4. Delirium, hospital psychosis. Continue present measures. We did get a little bit out from his colostomy bag which is encouraging. He is on an amiodarone drip for atrial fibrillation. He is on Zosyn 3.375 mg q.6. Still getting TPN. cc: Raleigh Epstein MD
[2017-01-14 09:26] LABS: CREATININE BODY FLUID 0.9 mg/dL
[2017-01-14] MEDS: CORDARONE 360 MG/D5W 360 MG/200 ML IV.SOLN IV SCH ×2 (11:26→23:41)
[2017-01-14] MEDS: MORPHINE IV PRN ×2 (14:16→21:00)
[2017-01-14] MEDS: TPN ELECTROLYTES 20 ML, MAGNESIUM SULFATE 5 MEQ, POTASSIUM CHLORIDE 25 MEQ, M.V.I.-12 1... IV SCH ×8 (18:10)
[2017-01-14] MEDS: TYLENOL PO PRN (21:38)
[2017-01-15] MEDS: HUMULIN R SUBQ SCH ×6 (01:19→20:56)
[2017-01-15] MEDS: ZOSYN 3.375 GM/NS 3.375 GM/50 ML IVPB IV SCH ×4 (01:19→20:52)
[2017-01-15] MEDS: ALBUTEROL NEB INH SCH ×6 (03:00→22:37)
[2017-01-15] MEDS: HEPARIN SUBQ SCH ×3 (04:29→20:54)
[2017-01-15] MEDS: MORPHINE IV PRN ×3 (04:30→19:50)
[2017-01-15 05:21] LABS: HEMATOCRIT 29.6 % (42.0-52.0); HEMOGLOBIN 9.9 g/dL (14.0-18.0); MCH 26.5 PG (27-31); MCHC 33.4 g/dL (33-37); MCV 79.4 FL (81-99); RBC 3.73 XMIL (4.7-6.1)
[2017-01-15 05:34] LABS: AGAP 8; ALBUMIN 1.8 g/dL (3.5-5.0); ALKALINE PHOSPHATASE 60 U/L (32-122); BUN 18 mg/dL (8-22); CALCIUM 7.7 mg/dL (8.8-10.2); CHLORIDE 92 mmol/L (98-107); COSMO 265; GOT 20 U/L (10-34); GPT 10 U/L (10-44); POTASSIUM 3.9 mmol/L (3.5-5.1); SODIUM 131 mmol/L (136-145); TCO2 31 mmol/L (25-35); TOTAL BILIRUBIN 1.56 mg/dL (0.20-1.00)
--- NOTE | 2017-01-15 07:21 | Diag Imaging Result Doc PS360 ---
EXAM: CHEST-PORTABLE INDICATION: respiratory failure TECHNIQUE: One view COMPARISON: 01/14/2017 FINDINGS: Support tubes and lines are in stable position. Bibasilar infiltrates suggesting pulmonary edema most likely are approximately stable. There are no new consolidations appreciated. There is stable lingular atelectasis. Cardiac silhouette is stable. IMPRESSION: Stable chest. Electronically signed by Adan Garcia 01/15/2017 7:18 AM
[2017-01-15] MEDS: LIPOSYN 20% 250 ML IV SCH (08:09)
--- NOTE | 2017-01-15 09:24 | PROGRESS NOTE ---
DATE: 01/15/2017 SUBJECTIVE: Patient doing okay. He did have an episode of fever last night which responded to Tylenol. His heart rate has been anywhere from the 90s to 120s with his atrial fibrillation. He is tolerating his vitals at this point, but it has only gone to 10 mL an hour. His GRACIELA still has significant amount of output. His urine output has been okay. OBJECTIVE: Vital Signs: Patient's current temperature is 99.8 degrees, current pulse is 117, current blood pressure over 100 systolic. General: No acute distress. Resting. Cardiovascular: Looks like it is atrial fibrillation. Lungs: Some coarse sounds. Abdomen: Soft, nondistended. Ostomy appears viable. Incision is healing okay. GRACIELA with serous output. LABORATORY: His white blood cell count is 12 which is up from 14, his hematocrit is 29, platelet count 444. His albumin is 1.8. ASSESSMENT/PLAN: An 78-year-old, male status post right hemicolectomy and sigmoid resection for perforated fistula, sigmoid colon. 1. Postoperative state at this time: Patient has remained on the ventilator. His overall clinical status appears to be improving. His urine output is okay. He does have a slight leukocytosis and a fever. He is high risk for development of intra-abdominal abscess given the significant amount of contamination. He is currently on Zosyn. If his white blood cell count persists, we may need to get a CT scan to evaluate if there is an abscess. I did check his Ezequiel-Jaeger drain. His creatinine level was normal, so I do not suspect he has an injury to his bladder or his ureter. 2. Sepsis. At this time, he is off pressors. He is still on Zosyn. His white count did go up; we will continue to monitor. 3. Malnutrition. At this time, patient is on total parenteral nutrition. We started tube feeds. His albumin is still 1.8, so we will need to continue both means to continue his protein intake. I will ask the dietitian to set a goal for his tube feeds and will increase it slowly over time. cc: MD Raleigh Virgen MD
[2017-01-15] MEDS: CORDARONE 360 MG/D5W 360 MG/200 ML IV.SOLN IV SCH ×2 (10:13→21:14)
--- NOTE | 2017-01-15 11:51 | PROGRESS NOTE ---
DATE: 01/15/2017 SUBJECTIVE: Mr. Watkins is awake. He is still having some confusion. He seems to be a little stronger but still has some confusion, still pretty lethargic most of the time but he does respond to questions and does hear your voice. PHYSICAL EXAMINATION: Vital Signs: Temperature 97.8 degrees, pulse 111, respirations 30, blood pressure 147/76. HEENT: Pupils are equal and round. Lungs: Are clear in all lung tejeda. Cardiovascular Examination: Regular rhythm and rate without murmur or S3. Abdomen: Soft. Skin: Warm and dry. Is and Os: Colostomy has had some contents. The urine output was almost 8 L. LAB: White count 14,200, hematocrit is 29, platelet count 444,000. Sodium 131, potassium 3.9, chloride 92, bicarb 31, BUN is 18, creatinine 0.9, blood sugar 152, 131, 111. Albumin 1.8. ASSESSMENT AND PLAN: 1. Postoperative state. The patient had prolonged ventilatory support and has been doing well extubated. Seems to be getting stronger. Tolerating the feeding. At high risk for development of intraabdominal abscess given significant amount of contamination. Currently on Zosyn. His white count persists. Has mild leukocytosis. May need to do a CT scan to look at that. He has a Ezequiel-Jaeger drain which has had a pretty high volume. His creatinine was normal so I do not suspect he had any damage to his ureter or bladder. 2. Sepsis, which is resolved. Continue present antibiotics. 3. Renal function looks good. 4. Malnutrition. Albumin is 1.8. Continue tube feedings. Continue current nutrition. 5. Review of his orders. He is on amiodarone for his atrial fibrillation and is on amiodarone drip. cc: Raleigh Epsetin MD
[2017-01-15 12:43] LABS: AGAP 10; BUN 19 mg/dL (8-22); CHLORIDE 89 mmol/L (98-107); COSMO 258; GOT 20 U/L (10-34); MAGNESIUM 1.9 mg/dL (1.5-2.7); POTASSIUM 3.6 mmol/L (3.5-5.1); PREALBUMIN 4.5 mg/dL (20-40); SODIUM 126 mmol/L (136-145); TCO2 27 mmol/L (25-35); TRIGLYCERIDES 237 mg/dL (39-160)
--- NOTE | 2017-01-15 14:05 | PROGRESS NOTE ---
DATE: 01/15/2017 SUBJECTIVE: Mr. Watkins is somewhat drowsy after recent analgesic. He has tube feeds going at low rate and reportedly has not had any significant residual. OBJECTIVE: Vital Signs: Blood pressure 145/90, heart rate 117 and irregular. ECG monitor shows sinus rhythm alternating with paroxysms of atrial fibrillation with rapid ventricular rate. There is no significant jugular venous distention. Chest: Clear to auscultation. Cardiac: Reveals an irregular rate and rhythm, without appreciable murmur or gallop. Abdomen: Soft. Bowel sounds are audible. Extremities: There is no evidence of peripheral edema. IMPRESSIONS: 1. Postoperative intermittent atrial fibrillation with rapid ventricular rate. 2. Status post emergency laparotomy for management of perforated sigmoid colon with associated fecal peritonitis. 3. Hypertension. 4. Hypercholesterolemia. 5. History of subdural hematoma in the past, requiring evacuation. RECOMMENDATIONS: Continue intravenous amiodarone along with metoprolol intravenously on an as- needed basis. cc: MD Raleigh Hollins MD
[2017-01-15] MEDS: ALBUMIN 25% IV SCH ×2 (14:07→20:52)
[2017-01-15] MEDS: LASIX IV SCH ×2 (14:37→20:54)
--- NOTE | 2017-01-15 16:14 | CONSULTATION ---
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 HISTORY OF PRESENT ILLNESS: This is an 86-year-old, male, who lives at home with his who apparently is quite active. He came to the emergency department with severe abdominal pain and loose stools with nausea. Upon further evaluation, he was found to be quite hypotensive. He had a fever of 103. A CT abdomen and pelvis was performed which showed a large amount of free air in the abdomen. Patient was sent to surgery where they performed an exploratory laparotomy with open right hemicolectomy and open sigmoid resection with end colostomy by Dr. Peres on 01/09/2017. 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 Patient is currently off of the ventilator. He remains in the ICU. He continues to have leukocytosis. A repeat CT of abdomen and pelvis has been ordered and is pending. The patient has gone into atrial fibrillation with RVR postop, so he is currently on an amiodarone drip. The patient is quite sleepy at this time. REVIEW OF SYSTEMS: Negative unless indicated in the HPI. ALLERGIES: No known allergies. HOME MEDICATIONS: 1. Lyrica. 2. Prevacid. 3. Fenofibrate. 4. Bentyl. PAST MEDICAL HISTORY: History of prostate cancer, hypertension, hyperlipidemia , subdural hematoma requiring evacuation and neuropathy. SOCIAL HISTORY: Patient denies alcohol, tobacco, or illicit drug use. He has a supportive family. The patient is very active and lives at home with his . PHYSICAL EXAMINATION: Vital Signs: Stable. General: male in no acute distress. HEENT: Head is normocephalic, atraumatic. Mucous membranes are moist. Neck: Supple. Trachea is midline. Cardiovascular: S1, S2 audible to auscultation. Pulmonary: Breath sounds clear to auscultation. Normal respiratory effort. Extremities: Patient moves all extremities. Gastrointestinal: There is a colostomy bag in place. There is also a GRACIELA drain. Skin: No petechiae, ecchymosis. Neurologic: Alert and oriented. DIAGNOSTIC DATA: CT abdomen and pelvis as above. WBC is 14.2, hemoglobin 9.9, hematocrit 29.6, platelet count is 444,000. Sodium is 131, potassium 3.9. BUN 18 and creatinine is 0.9. ASSESSMENT AND PLAN: 1. Perforated sigmoid colon with associated peritonitis with mesenteric mass status post surgery. 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 We will await final pathology. We will continue to follow. Patient will require a PET scan as an outpatient. 2. Atrial fibrillation with rapid ventricular response on amiodarone drip. 3. Leukocytosis. He is currently on Zosyn. 4. Nutrition. He is receiving tube feeds, TPN, and lipids. 5. Deep venous thrombosis prophylaxis with heparin. Dictated by MICHI Ho for Durga Martinez MD cc: MICHI Ho MD [facility] J. Schmidt, MD [facility]
[2017-01-15] MEDS: TPN ELECTROLYTES 20 ML, MAGNESIUM SULFATE 5 MEQ, POTASSIUM CHLORIDE 25 MEQ, M.V.I.-12 1... IV SCH ×8 (17:37)
[2017-01-15] MEDS: LOPRESSOR IV PRN (19:30)
[2017-01-16] MEDS: HUMULIN R SUBQ SCH ×6 (00:56→20:20)
[2017-01-16] MEDS: ALBUMIN 25% IV SCH (00:57)
[2017-01-16] MEDS: ZOSYN 3.375 GM/NS 3.375 GM/50 ML IVPB IV SCH ×4 (01:06→20:16)
[2017-01-16] MEDS: LASIX IV SCH (02:54)
[2017-01-16 04:48] LABS: ALLEN TEST YES; BE 11.4 mmoll (-3.0-3.0); BLOOD TYPE ARTERIAL; DRAW SITE R RADIAL; METHB 0.1 % (0.0-1.5); O2(CT) 8.6 mL/dL (15.0-23.0); PCO2(98.6) 42 mmHg (35-45); PO2(98.6) 60 mmHg (60-100); SAMPLE BLOOD; SAO2 94.1 % (95.0-100.0); THB 6.5 g/dL (11.5-17.4); pH(98.6) 7.53 (7.35-7.45)
[2017-01-16 04:49] LABS: MODALITY CANNULA
[2017-01-16] MEDS: HEPARIN SUBQ SCH ×3 (05:58→20:18)
[2017-01-16 06:01] LABS: MAGNESIUM 1.9 mg/dL (1.5-2.7); PREALBUMIN 6.3 mg/dL (20-40)
[2017-01-16 06:04] LABS: AGAP 13; ALBUMIN 2.7 g/dL (3.5-5.0); ALKALINE PHOSPHATASE 59 U/L (32-122); BUN 24 mg/dL (8-22); CALCIUM 7.8 mg/dL (8.8-10.2); CHLORIDE 93 mmol/L (98-107); COSMO 277; GOT 18 U/L (10-34); GPT 8 U/L (10-44); POTASSIUM 3.5 mmol/L (3.5-5.1); SODIUM 135 mmol/L (136-145); TCO2 29 mmol/L (25-35); TOTAL BILIRUBIN 1.16 mg/dL (0.20-1.00); TOTAL PROTEIN 4.3 g/dL (6.3-8.3); TRIGLYCERIDES 183 mg/dL (39-160)
[2017-01-16 06:06] LABS: HEMATOCRIT 25.2 % (42.0-52.0); HEMOGLOBIN 8.4 g/dL (14.0-18.0); MCH 26.7 PG (27-31); MCHC 33.3 g/dL (33-37); MPV 9.9 FL (7.4-10.4); RBC 3.15 XMIL (4.7-6.1)
[2017-01-16] MEDS: LIPOSYN 20% 250 ML IV SCH (07:22)
--- NOTE | 2017-01-16 07:26 | Diag Imaging Result Doc PS360 ---
CHEST-PORTABLE - 01/16/2017 INDICATION: respiratory failure TECHNIQUE: COMPARISON: 01/15/2017 FINDINGS: Support lines and tubes are stable. Stable bibasilar airspace opacity left greater than right. Stable cardiomegaly and central pulmonary vascular congestion. No new infiltrates. IMPRESSION: No change from prior. Electronically signed by Ezra Suárez 01/16/2017 7:23 AM
[2017-01-16] MEDS: ALBUTEROL NEB INH SCH ×5 (08:19→23:15)
--- NOTE | 2017-01-16 08:21 | Diag Imaging Result Doc PS360 ---
EXAM: CT ABD/PELVIS ORAL CONTR ONLY INDICATION: peritonitis, r/o abscess TECHNIQUE: COMPARISON: 01/09/2017 FINDINGS: There are bilateral moderate-sized pleural effusions, largest on the left. There is associated bibasilar atelectasis. There is an NG tube in place with the tip in the stomach. There has been an interval laparotomy and partial colectomy. There is now a colostomy at the left lower quadrant. There is small volume fluid tracking around the liver and spleen and interdigitating between several loops of bowel. These collections are fairly low dense and are not necessarily abscesses. This would be difficult to determine without IV contrast, however. There is diffuse edema involving the mesentery at the lower abdomen and pelvis. There is a GRACIELA drain in the pelvis anteriorly. No extraluminal free gas is appreciated on the current study. There is a Johnston catheter in place in the urinary bladder. There are several mildly prominent loops of small bowel that likely represents mild ileus. There is nothing specific for obstruction. The remainder of the solid viscera of the abdomen and pelvis and the remainder of the GI tract are essentially unremarkable. IMPRESSION: 1.Postsurgical changes related to recent prior partial colectomy as described. 2.Small volume fluid tracking around the liver, spleen, and interdigitating between loops of small bowel. 3.Mesenteric edema. 4.Bilateral moderate-sized pleural effusions and bibasilar atelectasis. 5.Other incidental/nonacute findings detailed above. Electronically signed by Adan Garcia 01/16/2017 8:19 AM
[2017-01-16] MEDS: CORDARONE 360 MG/D5W 360 MG/200 ML IV.SOLN IV SCH ×2 (08:53→20:14)
[2017-01-16] MEDS ORDERED: BLISTEX MEDICATED BERRY LIP BALM TOP PRN (10:45)
--- NOTE | 2017-01-16 11:13 | PROGRESS NOTE ---
DATE: 01/16/2017 SUBJECTIVE: Today Mr. Watkins refers to be doing a little better. The was at the bedside at the time of the encounter. OBJECTIVE: Vital signs: Blood pressure is 132/53, pulse of 88, respiration is 17, temperature 97.8 degrees. General Examination: Mr. Watkins is an 86-year-old male. He is in bed. He does not seems to be in any remarkable distress. HEENT: Mucosa is pink and moist. Anicteric. Acyanotic. Neck: Supple. Chest: Good air entry bilaterally. Few bibasilar crepitations. Cardiovascular: Regular rate and rhythm. Abdomen: Soft. There is a sterile dressing on the anterior abdominal wall, which I think is from the surgical scar. There is a left ostomy bag which has some stool in and there is a right side Ezequiel-Jaeger drain. Extremities: No pedal edema. 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 Has no focal neurological deficit. Seems to followup with basic commands. LABORATORY DATA: WBC is 11.35, hemoglobin is 8.4, platelet count of 513,000. Chemistry is reviewed, is completely unremarkable. Sodium is 135, potassium is 3.5, chloride is 95, bicarb is 19. BUN is 24, creatinine is 1.4. CURRENT MEDICATIONS: 1. Albuterol nebs. 2. Amiodarone. 3. TPN. 4. Zosyn at 3.375. 5. Ziprasidone. ASSESSMENT: 1. Perforated hollow viscus, status post right hemicolectomy and sigmoid resection. Today, is postoperative day 7. Patient is being followed by Dr. Peres. Seems to be doing well. 2. Sepsis with fecal peritonitis. Patient continues to be on antibiotics. 3. Intermittent atrial fibrillation. 4. Paroxysmal atrial fibrillation. Patient is currently on amiodarone drip. 5. Nutritional needs: Patient is on TPN and NG tube feedings. 6. Acute kidney injury, improved. In general, I think Mr. Watkins is gradually getting better. I think his postop progress is going to be a very slow and steady one. We are going to continue with the current care. cc: Fabian Portillo MD
[2017-01-16] MEDS: MORPHINE IV PRN ×2 (13:02→18:28)
--- NOTE | 2017-01-16 15:43 | PROGRESS NOTE ---
DATE: 01/16/2017 SUBJECTIVE: The patient continues without chest discomfort or dyspnea. He appears stronger. OBJECTIVE: Vital Signs: Blood pressure 111/57 with a heart rate of 102, ECG monitor showing predominantly sinus rhythm with short episodes of paroxysmal atrial fibrillation and frequent supraventricular ectopy. Chest: Clear to auscultation. Cardiac: Reveals a regular rate and rhythm, without appreciable murmur or gallop. Abdomen: Nondistended. Bowel sounds audible. Extremities: Without edema. IMPRESSIONS: 1. Postoperative atrial fibrillation. This appears to be coming under better control with intravenous amiodarone and as patient recuperates. 2. Status post emergency laparotomy for management of perforated sigmoid colon with associated fecal peritonitis. 3. Hypertension. 4. Hypercholesterolemia. 5. History of subdural hematoma in the past, requiring evacuation. RECOMMENDATIONS: 1. Continue intravenous amiodarone at current rate. 2. Continue intravenous metoprolol on an as-needed basis. cc: MD Fabian Hollins MD
[2017-01-16] MEDS ORDERED: TPN ELECTROLYTES 20 ML, MAGNESIUM SULFATE 5 MEQ, POTASSIUM CHLORIDE 25 MEQ, M.V.I.-12 1... IV SCH ×8 (17:00)
[2017-01-16] MEDS: LOPRESSOR IV PRN (20:00)
[2017-01-16] MEDS ORDERED: LASIX IV ONE (20:00)
--- NOTE | 2017-01-16 21:40 | PROGRESS NOTE ---
DATE: 01/16/2017 SUBJECTIVE: Patient doing okay. No major issues reported by the nursing staff. He is going intermittently out of atrial fibrillation. His Ezequiel-Jaeger drain has decreased in output. He sees to be tolerating his tube feeds. He still has a somewhat altered mental status. OBJECTIVE: Vital Signs: Patient is currently afebrile. His vital signs have been stable. General: No acute distress. Resting. Cardiovascular: Irregular. Lungs: Some coarse sounds. Abdomen is soft, nondistended. Ostomy appears viable. Incision appears to be healing okay. GRACIELA drain with serosanguineous output. LABORATORY: CBC still pending. ASSESSMENT AND PLAN: An 86-year-old male status post right hemicolectomy with sigmoid colon resection for perforated sigmoid colon with fistula of the small bowel. 1. Postoperative state at this time, patient remains off the ventilator. His overall clinical status is improving. His urine output is doing okay. We will follow up with his a.m. CBC to see what his white blood cell count is. If it is increasing, we may need to consider repeat CT scan. 2. 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 I have consulted Dr. Martinez. We will follow up with their recommendations. 3. Sepsis. At this time, patient is off pressors. He is still on Zosyn and will continue to monitor. 4. Malnutrition. At this time, the patient is on total parenteral nutrition. We started tube feeds. We will continue to increase his tube feeds to goal. Hopefully, once he has tolerated his tube feeds, we can transition him over to purely tube feeds and office total parenteral nutrition. 5. At this time, the patient seems to be stable enough to be considered a transfer to [facility]. Will follow up with other car sales consultant's recommendations. cc: MD Fabian Virgen MD
[2017-01-17] MEDS: HUMULIN R SUBQ SCH ×6 (01:30→20:17)
[2017-01-17] MEDS: ZOSYN 3.375 GM/NS 3.375 GM/50 ML IVPB IV SCH ×4 (01:31→19:14)
[2017-01-17] MEDS: ALBUTEROL NEB INH SCH ×7 (02:55→23:25)
[2017-01-17] MEDS: HEPARIN SUBQ SCH ×3 (04:24→20:17)
[2017-01-17 04:54] LABS: ALLEN TEST YES; BE 11.5 mmoll (-3.0-3.0); BLOOD TYPE ARTERIAL; DRAW SITE R RADIAL; METHB 0.4 % (0.0-1.5); MODALITY CANNULA; O2(CT) 12.8 mL/dL (15.0-23.0); PCO2(98.6) 41 mmHg (35-45); PO2(98.6) 70 mmHg (60-100); SAMPLE BLOOD; SAO2 95.3 % (95.0-100.0); THB 9.6 g/dL (11.5-17.4); pH(98.6) 7.54 (7.35-7.45)
[2017-01-17 05:52] LABS: HEMATOCRIT 27.1 % (42.0-52.0); HEMOGLOBIN 8.9 g/dL (14.0-18.0); MCH 26.4 PG (27-31); MCHC 32.8 g/dL (33-37); MCV 80.4 FL (81-99); MPV 9.6 FL (7.4-10.4); RBC 3.37 XMIL (4.7-6.1)
--- NOTE | 2017-01-17 06:34 | PROGRESS NOTE ---
DATE: 01/17/2017 SUBJECTIVE: No major issues. Discussed his course with the nursing staff. He did have some ostomy output today. He is doing relatively well. He is more alert. OBJECTIVE: Vital Signs: Patient is currently afebrile. His vital signs have been stable. General Examination: No acute distress. Cardiovascular: Somewhat irregular. Lungs: Coarse breath sounds. Abdomen: Soft, nondistended. Ostomy appears viable. Incision is healing well. GRACIELA drain with serosanguineous output. Laboratory: White blood cell count is 13, hematocrit is 27.1, platelet count 639,000. Remainder of labs reviewed. He did have a CT scan done yesterday which did not show any intra-abdominal abscess and only a small amount of fluid. ASSESSMENT/PLAN: An 86-year-old, male status post right hemicolectomy with sigmoid resection for perforated sigmoid colon and fistula to the small bowel. 1. Postoperative state. At this time, the patient remains off the ventilator. His clinical status is improving. His urine output so okay. His CT scan did not show any other intra- abdominal process. Given this, I think it is safe to transfer him to the CICU. 2. Pathology did show that the patient did have a large diffuse B-cell lymphoma as the cause of this perforation. Dr. Martinez is following. 3. Sepsis. At this time, patient is off pressors. He is still on Zosyn. We will continue to monitor. 4. Malnutrition. At this time, patient is being transition from total parenteral nutrition to tube feeds. We will increase his tube feeds to goal. cc: MD Fabian Virgen MD
[2017-01-17 06:35] LABS: AGAP 11; ALBUMIN 2.3 g/dL (3.5-5.0); ALKALINE PHOSPHATASE 73 U/L (32-122); BUN 28 mg/dL (8-22); CALCIUM 8.4 mg/dL (8.8-10.2); CHLORIDE 94 mmol/L (98-107); COSMO 278; GOT 21 U/L (10-34); GPT 8 U/L (10-44); MAGNESIUM 1.9 mg/dL (1.5-2.7); POTASSIUM 2.9 mmol/L (3.5-5.1); SODIUM 137 mmol/L (136-145); TCO2 32 mmol/L (25-35); TOTAL BILIRUBIN 0.78 mg/dL (0.20-1.00)
--- NOTE | 2017-01-17 07:24 | Diag Imaging Result Doc PS360 ---
EXAM: CHEST-PORTABLE HISTORY: respiratory failure TECHNIQUE: Erect AP portable at 0530 COMMENT: There is an NG tube with its tip coiled in the stomach. There is a pleural effusion on the left with platelike atelectasis in the lingula. The appearance of the chest has not changed appreciably since 01/16/2017. There is dense opacification in the retrocardiac portion of the left lower lobe as before. IMPRESSION: Atelectasis and/or pneumonia in the left lower lobe. Left pleural effusion. Electronically signed by Alban Allen 01/17/2017 7:21 AM
[2017-01-17] MEDS: LIPOSYN 20% 250 ML IV SCH (07:34)
[2017-01-17] MEDS: CORDARONE 360 MG/D5W 360 MG/200 ML IV.SOLN IV SCH ×2 (08:00→20:17)
[2017-01-17] MEDS ORDERED: KLOR-CON PO ONE (09:19)
--- NOTE | 2017-01-17 10:43 | PROGRESS NOTE ---
DATE: 01/17/2017 SUBJECTIVE: Today Mr. Watkins looks a lot better. He is more alert. Dr. Peres has already seen him and has put in some orders for transfer to the floor. OBJECTIVE: Vital signs: Blood pressure 127/70, pulse of 90, respirations 24, temperature is 97.4 degrees. General: Mr. Watkins is an 86-year-old male. He is in bed , not seemingly distressed. HEENT: Mucosa is pink and moist. Anicteric. Acyanotic. Neck: Supple. There is an IJ on the right side. Chest: Air entry is bilaterally reduced. Cardiovascular: Regular rate and rhythm. No murmurs. Abdomen: Soft. There is a left ostomy bag in place. Extremities: No pedal edema. 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 Follows some simple commands. LABORATORY DATA: WBC 13.34, hemoglobin is 8.9, platelet count of 639,000. Chemistry is reviewed. Potassium is 2.9 which has been replaced. There is a chest x-ray done today which shows atelectasis and/or pneumonia in the left lower lobe and left pleural effusion. ASSESSMENT: 1. Perforated hollow viscus status post right hemicolectomy and sigmoid resection. Today is day 8 postop. The patient is being followed by Dr. Peres. 2. Acute peritonitis with sepsis. Patient continues to be on antibiotics. 3. Paroxysmal atrial fibrillation. 4. Acute kidney injury, improved. 5. Hypokalemia. We are going to replace this. PLAN: So in general, Mr. Watkins seems to be progressively doing better. His postop progress will be a very slow one. There are orders to transfer him to a regular floor. Once he is there we will start the physical rehabilitation process. I think long-term Mr. Watkins will eventually need rehab for physical rehabilitation when he is fit enough to be discharged. cc: Fabian Portillo MD MTDD
--- NOTE | 2017-01-17 13:42 | PROGRESS NOTE ---
DATE: 01/17/2017 SUBJECTIVE: Mr. Watkins continues to make progress. He is alert and denies any chest discomfort or dyspnea. He is currently not receiving tube feeds and has NG tube in place. OBJECTIVE: Vital Signs: Blood pressure 127/70, heart rate 94 and regular with ECG monitor showing sinus rhythm. Chest: Clear to auscultation. Cardiac Exam: Reveals a regular rate and rhythm without appreciable murmur or gallop. Extremities: Without edema. IMPRESSION: 1. Postoperative atrial fibrillation. Patient continues in sinus rhythm with premature supraventricular complexes on intravenous amiodarone. 2. Status post emergency laparotomy for management of perforated sigmoid colon with associated fecal peritonitis. 3. Hypertension. 4. Hypercholesterolemia. 5. History of subdural hematoma in the past requiring evacuation. RECOMMENDATIONS: Continue intravenous amiodarone for now, but consider discontinue after further clinical improvement. cc: MD Fabian Hollins MD
[2017-01-17] MEDS: TPN ELECTROLYTES 20 ML, MAGNESIUM SULFATE 5 MEQ, POTASSIUM CHLORIDE 30 MEQ, M.V.I.-12 1... IV SCH ×8 (16:56)
[2017-01-17] MEDS: MORPHINE IV PRN (21:38)
[2017-01-17] MEDS: TYLENOL PO PRN (23:51)
[2017-01-18] MEDS: HUMULIN R SUBQ SCH ×6 (00:07→20:24)
[2017-01-18] MEDS: ZOSYN 3.375 GM/NS 3.375 GM/50 ML IVPB IV SCH ×4 (01:05→20:22)
[2017-01-18] MEDS: MORPHINE IV PRN ×2 (01:13→16:07)
[2017-01-18] MEDS: HALDOL IV PRN ×2 (03:03→18:28)
[2017-01-18] MEDS: ALBUTEROL NEB INH SCH ×6 (03:45→23:08)
[2017-01-18 04:40] LABS: ALLEN TEST YES; BE 8.7 mmoll (-3.0-3.0); BLOOD TYPE ARTERIAL; DRAW SITE R RADIAL; PCO2(98.6) 42 mmHg (35-45); PO2(98.6) 75 mmHg (60-100); SAMPLE BLOOD
[2017-01-18 04:42] LABS: MODALITY CANNULA
[2017-01-18] MEDS: HEPARIN SUBQ SCH ×3 (04:43→23:12)
[2017-01-18 04:59] LABS: MAGNESIUM 2.1 mg/dL (1.5-2.7)
[2017-01-18 05:17] LABS: AGAP 10; ALBUMIN 2.3 g/dL (3.5-5.0); ALKALINE PHOSPHATASE 79 U/L (32-122); BUN 30 mg/dL (8-22); CALCIUM 7.8 mg/dL (8.8-10.2); CHLORIDE 96 mmol/L (98-107); COSMO 284; GOT 19 U/L (10-34); GPT 9 U/L (10-44); POTASSIUM 3.4 mmol/L (3.5-5.1); SODIUM 137 mmol/L (136-145); TCO2 31 mmol/L (25-35); TOTAL BILIRUBIN 0.71 mg/dL (0.20-1.00); TOTAL PROTEIN 4.6 g/dL (6.3-8.3)
[2017-01-18 05:19] LABS: HEMATOCRIT 25.3 % (42.0-52.0); HEMOGLOBIN 8.3 g/dL (14.0-18.0); MCH 26.5 PG (27-31); MCHC 32.8 g/dL (33-37); MCV 80.8 FL (81-99); MPV 9.4 FL (7.4-10.4); RBC 3.13 XMIL (4.7-6.1)
--- NOTE | 2017-01-18 07:13 | Diag Imaging Result Doc PS360 ---
EXAM: CHEST-PORTABLE INDICATION: respiratory failure TECHNIQUE: One view COMPARISON: 01/17/2017 FINDINGS: Support tubes and lines are in stable positions. Atelectasis at the left lower lung zone is stable. Retrocardiac opacity is unchanged. No new consolidations are appreciated. Cardiac silhouette is stable. IMPRESSION: Stable chest. Electronically signed by Adan Garcia 01/18/2017 7:11 AM
[2017-01-18] MEDS: LIPOSYN 20% 250 ML IV SCH (07:48)
--- NOTE | 2017-01-18 07:59 | Diag Imaging Result Doc PS360 ---
EXAM: CHEST-1 VIEW INDICATION: NG placement TECHNIQUE: One view COMPARISON: 01/18/2017 FINDINGS: The newly placed NG tube projects well below the diaphragm and is assumed to be in the body of the stomach in the expected position. A significant portion of the right lung is out of the [id number]. The visualized portion of the chest is essentially stable as compared to the very recent previous study. IMPRESSION: Interval placement of two in the expected position as described. Electronically signed by Adan Garcia 01/18/2017 7:57 AM
[2017-01-18] MEDS: CORDARONE 360 MG/D5W 360 MG/200 ML IV.SOLN IV SCH ×2 (08:02→20:33)
[2017-01-18] MEDS ORDERED: KLOR-CON PO ONE (09:53)
--- NOTE | 2017-01-18 11:48 | PROGRESS NOTE ---
DATE: 01/18/2017 SUBJECTIVE: No major issues. He is still confused. Discussed his overall course tonight with his nurse. She had no major issues with him besides confusion. He is having ostomy output. They have increased his tube feeds. OBJECTIVE: Vital Signs: Patient is currently afebrile. His vital signs are stable. General exam: No acute distress. Cardiovascular: Somewhat irregular. Lungs: Coarse breath sounds. Abdomen: Soft, nondistended. Ostomy appears viable and functioning. Incisions healing well. GRACIELA with serous output. LABORATORY: White blood cell count is 13, which is essentially stable. Hematocrit 25, platelet count 756. Remainder of labs reviewed. Of note, his albumin is 2.3. 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 1. Postoperative state at this time. Patient remains off the ventilator. He is doing well. His CT scan from 2 days ago did not show any intra-abdominal process. He has orders pending for him to go to the CICU. 2. 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 Dr. Martinez was following. 3. Sepsis. At this time, the patient is off pressors. He is doing well. 4. Malnutrition. At this time, patient is being transitioned over to oral intake. Overall he is doing well. His albumin seems to be increasing. cc: MD Fabian Virgen MD
--- NOTE | 2017-01-18 13:38 | PROGRESS NOTE ---
DATE: 01/18/2017 SUBJECTIVE: Today, Mr. Watkins refers to be doing a lot better. He is more alert and more communicative than yesterday. He was actually asking when we were going to move him to the regular floor and when we were going to feed him. OBJECTIVE: Vital Signs: Blood pressure is 147/67, pulse of 78, respirations 21 , temperature 97.3 degrees. Patient is saturating 95% on 4 L of oxygen. General: Mr. Watkins is an 86-year-old male. He is in bed, does not seems to be in any distress. HEENT: Mucosa is pink and moist. Anicteric. Acyanotic. Neck: Supple. Chest: Good air entry bilateral. No crepitations. No rhonchi. Cardiovascular: Regular rate. Slightly tachycardic. No murmurs. Abdomen: Soft. There is an ileostomy bag on the left side of the abdominal wall which has some fecal material. There is a sterile dressing over the surgical scar and there is a GRACIELA drain in place. Central nervous system: Patient is awake and alert, oriented and follow some basic commands. DIAGNOSTIC DATA: WBC is 13.40, hemoglobin is 8.3, platelet count of 756,000. Chemistries reviewed. Potassium is now 3.4. There is some improvement from yesterday. There is a chest x-ray done this morning which shows interval placement of tube position as described tube. ASSESSMENT: 1. Perforated hollow viscus. Status post right hemicolectomy and sigmoid resection, day 9 postop. Patient seems to be doing fine. He is tolerating nasogastric tube feeding and is currently also on total parenteral nutrition. I think patient would be okay to start some feedings on his own, but will be pending Surgery to evaluate the patient for their recommendations. 2. Acute peritonitis with sepsis, stable. Patient is on Zosyn today, it is day 9 on antibiotics. Cultures have been negative. Unfortunately, I do not see any peritoneal washout culture. Patient will continue on antibiotics for a total of 14 days. 3. Paroxysmal atrial fibrillation. Patient is on amiodarone drip and is being followed by Cardiology. 4. Acute kidney injury, improved. 5. Hypokalemia. We will continue to replace this. PLAN: In general, I think Mr. Watkins is doing a lot better. He is more alert. I think he will be fine giving him some ice chips and water and advance his oral diet as tolerated. It will, however, be pending Surgery to evaluate the patient for such recommendation. From a medical standpoint, we are okay for the patient to be moved to the floor and continue with his physical rehabilitation. I understand the family wants the patient to be discharged to a rehab whenever he is medically stable. cc: Fabian Portillo MD MTDD
--- NOTE | 2017-01-18 16:46 | PROGRESS NOTE ---
DATE: 01/18/2017 SUBJECTIVE: Patient looks much stronger today, is more animated. There is no chest discomfort or dyspnea. He continues in sinus rhythm with frequent premature supraventricular complexes. OBJECTIVE: Vital Signs: Blood pressure 136/76, heart rate 83 and regular. Oxygen saturation 94%. Chest: Clear to auscultation. Cardiac Exam: Reveals a regular rate and rhythm with occasional extrasystole without appreciable murmur or gallop. There is no evidence of peripheral edema. IMPRESSION: 1. Postoperative atrial fibrillation. Patient continues in sinus rhythm with premature supraventricular complexes. He is currently on intravenous amiodarone. 2. Status post emergency laparotomy for management of perforated sigmoid colon with associated peritonitis. 3. Hypertension. 4. Hypercholesterolemia. 5. History of subdural hematoma in the past requiring evacuation. RECOMMENDATIONS: 1. Overall plan is to continue amiodarone until he is further recovered. Will transition from intravenous amiodarone to oral amiodarone at present. However, I would not continue amiodarone residential after discharge unless he has persistently recurrent atrial fibrillation. 2. Dr. Boswell available over the weekend to see on an as-needed basis. cc: MD Fabian Hollins MD
[2017-01-18] MEDS: TPN ELECTROLYTES 20 ML, MAGNESIUM SULFATE 5 MEQ, POTASSIUM CHLORIDE 30 MEQ, M.V.I.-12 1... IV SCH ×8 (17:34)
[2017-01-18] MEDS ORDERED: IRBESARTAN PO SCH (19:14)
[2017-01-18] MEDS ORDERED: LASIX IV ONE (19:14)
[2017-01-18] MEDS: COENZYME Q10 PO SCH ×2 (20:22→22:55)
[2017-01-18] MEDS: LOFIBRA PO SCH (23:13)
[2017-01-18] MEDS: LIVALO PO SCH (23:13)
[2017-01-18] MEDS: LYRICA PO SCH (23:13)
[2017-01-19] MEDS: LYRICA PO SCH ×3 (00:07→20:29)
[2017-01-19] MEDS ORDERED: CALMOSEPTINE OINTMENT TOP PRN (00:52)
[2017-01-19] MEDS: HUMULIN R SUBQ SCH ×5 (01:02→16:51)
[2017-01-19] MEDS: ZOSYN 3.375 GM/NS 3.375 GM/50 ML IVPB IV SCH ×4 (03:00→20:29)
[2017-01-19] MEDS: ALBUTEROL NEB INH SCH ×6 (03:06→23:02)
[2017-01-19 05:07] LABS: HEMATOCRIT 25.9 % (42.0-52.0); HEMOGLOBIN 8.3 g/dL (14.0-18.0); MCH 26.3 PG (27-31); MCV 82.2 FL (81-99); MPV 9.3 FL (7.4-10.4); RBC 3.15 XMIL (4.7-6.1)
[2017-01-19 05:26] LABS: AGAP 11; ALBUMIN 2.3 g/dL (3.5-5.0); ALKALINE PHOSPHATASE 89 U/L (32-122); BUN 26 mg/dL (8-22); CALCIUM 8.6 mg/dL (8.8-10.2); CHLORIDE 94 mmol/L (98-107); COSMO 276; GOT 23 U/L (10-34); GPT 12 U/L (10-44); POTASSIUM 3.4 mmol/L (3.5-5.1); SODIUM 135 mmol/L (136-145); TCO2 30 mmol/L (25-35); TOTAL BILIRUBIN 0.63 mg/dL (0.20-1.00); TOTAL PROTEIN 5.5 g/dL (6.3-8.3); TRIGLYCERIDES 137 mg/dL (39-160)
[2017-01-19] MEDS: HEPARIN SUBQ SCH ×3 (06:01→23:08)
[2017-01-19] MEDS: PRILOSEC PO SCH (06:02)
--- NOTE | 2017-01-19 07:25 | PROGRESS NOTE ---
DATE: 01/19/2017 SUBJECTIVE: Patient doing okay. He is less confused to me this morning. He was transferred up to the CICU. He is having ostomy output. He did pass a swallow study and was started on a GI soft diet. His NG tube has been removed. He is off TPN. OBJECTIVE: Vital Signs: Patient is currently afebrile. His vital signs are stable. GRACIELA drain has 125 recorded of serous fluid out. His ostomy has output. General: No acute distress. Mental status improved. Cardiovascular: Somewhat irregular. Lungs: Some coarse breath sounds. Abdomen soft, nondistended. Ostomy appears to be viable and functioning. Incision is healing well. GRACIELA drain with serous output. LABORATORY: White blood cell count 15, hematocrit is 25, platelet count 946,000. Remainder of labs reviewed. ASSESSMENT AND PLAN: An 86-year-old, male, status post right hemicolectomy with sigmoid resection for perforated sigmoid colon and fistula in the small bowel. 1. Postoperative state at this time: Patient is doing well. He has been transferred up to the CICU. He does have a leukocytosis but this may be related to a pneumonia per the chest x-ray. His CT scan 3 days ago did not show any acute intra-abdominal process. At this time, I would keep him on his antibiotics. 2. Pathology did show B-cell lymphoma. At this time, Dr. Martinez is following; likely outpatient PET scan. 3. Sepsis. At this time, the patient is off pressors. Essentially has resolved although he does have leukocytosis. 4. Leukocytosis. At this time, it is up to 15 which is increased from 13. He does have what appears to be a developing pneumonia. He is on Zosyn. 5. Malnutrition. At this time, patient has been transitioned over to oral intake. I think he is doing well. We will just need to monitor him closely. DISPOSITION: I think the patient would do well with a rehab referral which is still pending. cc: MD Fabian Virgen MD
[2017-01-19] MEDS: CORDARONE 360 MG/D5W 360 MG/200 ML IV.SOLN IV SCH ×2 (07:35→09:14)
[2017-01-19] MEDS: LOFIBRA PO SCH (09:13)
[2017-01-19] MEDS: LIVALO PO SCH (09:13)
[2017-01-19] MEDS ORDERED: CORDARONE 360 MG/D5W 360 MG/200 ML IV.SOLN IV SCH (11:19)
[2017-01-19] MEDS ORDERED: POTASSIUM CHLORIDE 20% LIQUID PO ONE (11:26)
--- NOTE | 2017-01-19 11:46 | PROGRESS NOTE ---
DATE: 01/19/2017 CHIEF COMPLAINT: Irregular heart beat, abdominal pain, confusion. SUBJECTIVE: Mr. Watkins is more responsive today, is less confused. He is starting to take oral medications and food. He has abdominal discomfort, overall seems to be improving. Son and [id number] are at the bedside. OBJECTIVE: Blood pressure is 154/65, temperature 97.6, pulse 80, respirations 16. He is arousable, appears to be exhausted. HEENT is unremarkable. He appears to be pale. Chest: Diminished breath sounds at bases. Heart sounds are regular and rhythmic. He does have extrasystoles. Abdomen is tender, somewhat distended. Pulses diminished. Neurologic: He wakes up. Cranial nerves appear to be grossly normal. DIAGNOSTIC DATA: Telemetry shows sinus rhythm with PACs. EKG done this morning shows sinus rhythm with PACs. His blood count from today is 15,230, hemoglobin 8.3, hematocrit 25.9. Sodium is 135, potassium 3.4, BUN is 26, creatinine 0.9. Magnesium is 2.0. IMPRESSION: 1. The patient presented with a perforated bowel. He is status post bowel resection on 01/09/2017. Pathology indicates the presence of diffuse B cell lymphoma. 2. Paroxysmal atrial fibrillation. 3. Anemia. 4. History of hypertension. 5. History of hyperlipidemia. 6. History of subdural hematoma in the past. RECOMMENDATIONS: From a cardiology viewpoint, we will go ahead and switch his IV amiodarone to oral amiodarone and continue to monitor his rhythm. Potassium is being replaced. We will follow him along. Thank you for the opportunity to participate in his evaluation. cc: MD Fabian Courtney MD
[2017-01-19] MEDS: CORDARONE PO SCH ×2 (12:59→17:04)
[2017-01-19] MEDS: COENZYME Q10 PO SCH ×2 (12:59→20:29)
--- NOTE | 2017-01-19 15:58 | PROGRESS NOTE ---
DATE: 01/19/2017 SUBJECTIVE: Today Mr. Watkins referred to be doing fine. I saw that the and the daughter and another family member at the bedside at the time of the interview. He denies any complaint however according to the family members they think that he has a little bit more confused and he is sleeping. Anyway when I started to interrogate him he looked pretty much very alert and he just said he is tired and he wanted to sleep. OBJECTIVE: Vital signs: Blood pressure is 130/57, pulse is 70, respirations 16 , temperature 97.8 degrees. General: Mr. Watkins is 86-year-old male. He is in bed, not seemingly distressed. HEENT: Mucosa is pink and moist. Anicteric. Acyanotic. Neck: Supple. Chest: Clear. Cardiovascular: Regular rate and rhythm. Abdomen: Soft. There is an ostomy bag on the left side of the abdominal wall which has some fecal material. There is a sterile dressing over the surgical wound. GRACIELA drain in place. 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 NG tube has been removed. LABORATORY DATA: WBC is 15.23, hemoglobin is 8.3, platelet count is 943,000. Chemistries reviewed. Potassium is 3.4. Pathology report has also been reviewed. 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 ASSESSMENT: 1. Perforated hollow viscus status post right hemicolectomy and sigmoid resection. Today is day 10 postop. Nasogastric tube has been removed. Patient is tolerating some gastrointestinal soft diet. 2. Acute peritonitis with sepsis. Patient is on Zosyn. Today is day 10. Will continue a total of 14 days. 3. Paroxysmal atrial fibrillation. Cardiology is involved. Amiodarone has been switched to p.o. 4. Acute kidney injury improved. 5. Hypokalemia. Will continue to replace. 6. Thrombocytosis likely reactive. We would keep eye on this. The patient is already being followed by Dr. Martinez so will defer any recommendation with regards to him. 7. Diffuse B-cell lymphoma. At this point, I think patient will follow up with Dr. Martinez on outpatient basis. 8. Generalized weakness and deconditioning. The patient continues to be remarkably weak. I put in a social services technician consult for rehab placement. cc: Fabian Portillo MD [facility]
[2017-01-19] MEDS: AVAPRO PO SCH (20:29)
[2017-01-20] MEDS: HUMULIN R SUBQ SCH (00:12)
[2017-01-20] MEDS: ALBUTEROL NEB INH SCH ×6 (03:17→23:14)
[2017-01-20] MEDS: ZOSYN 3.375 GM/NS 3.375 GM/50 ML IVPB IV SCH ×4 (03:49→21:28)
[2017-01-20 06:23] LABS: AGAP 11; ALBUMIN 2.4 g/dL (3.5-5.0); ALKALINE PHOSPHATASE 87 U/L (32-122); BUN 31 mg/dL (8-22); CALCIUM 8.2 mg/dL (8.8-10.2); CHLORIDE 97 mmol/L (98-107); COSMO 278; GOT 29 U/L (10-34); GPT 13 U/L (10-44); POTASSIUM 4.6 mmol/L (3.5-5.1); SODIUM 135 mmol/L (136-145); TCO2 27 mmol/L (25-35); TOTAL PROTEIN 5.2 g/dL (6.3-8.3)
[2017-01-20] MEDS: PRILOSEC PO SCH (06:25)
[2017-01-20] MEDS: HEPARIN SUBQ SCH ×4 (06:26→23:59)
[2017-01-20 06:44] LABS: HEMATOCRIT 25.3 % (42.0-52.0); MCH 26.6 PG (27-31); MCHC 31.6 g/dL (33-37); MCV 84.1 FL (81-99); MPV 9.5 FL (7.4-10.4); RBC 3.01 XMIL (4.7-6.1)
--- NOTE | 2017-01-20 07:00 | PROGRESS NOTE ---
DATE: 01/20/2017 SUBJECTIVE: Patient doing well. Tolerating his diet. He is off of TPN. His NG tube has been removed. OBJECTIVE: Vital Signs: Patient is currently afebrile. His vital signs are stable. General Examination: No acute distress. Cardiovascular: Regular rate and rhythm. Lungs: Grossly clear. Abdomen: Soft, nontender, nondistended. GRACIELA drain with minimal output, removed at the bedside which he tolerated well. Ostomy appears viable. 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 Postoperative state. At this time, the patient is doing well. He has been transferred to the CICU. I recommend continued observation at this point but hopefully transfer to a rehab facility in the near future. cc: MD Fabian Virgen MD
[2017-01-20] MEDS: CORDARONE PO SCH ×3 (08:04→16:04)
[2017-01-20] MEDS: LOFIBRA PO SCH (08:04)
[2017-01-20] MEDS: LYRICA PO SCH ×2 (08:04→21:29)
[2017-01-20] MEDS: LIVALO PO SCH (08:04)
[2017-01-20 08:29] LABS: IRON SATURATION 21 %; TIBC 241 ug/dL; TOTAL IRON 51 ug/dL (53-167); UNBOUND IRON 190 ug/dL (112-346)
[2017-01-20] MEDS: COENZYME Q10 PO SCH ×2 (08:33→21:30)
[2017-01-20] MEDS ORDERED: TYLENOL PO ONE (11:43)
[2017-01-20] MEDS ORDERED: BENADRYL IV ONE (11:44)
[2017-01-20] MEDS ORDERED: VENOFER 500 MG in NS 250 ML IV ONE (13:00)
--- NOTE | 2017-01-20 17:33 | PROGRESS NOTE ---
DATE: 01/20/2017 SUBJECTIVE: Today Mr. Watkins refers to be doing relatively fine, just a little drowsy but otherwise he has been tolerating his meals. OBJECTIVE: Vital signs: Blood pressure is 110/59, pulse of 65, respirations 24, temperature 98.2 degrees. General: Ms. Watkins is an 86-year-old male. He is in bed, not seemingly distressed. HEENT: Mucosa is pink and moist. Anicteric. Acyanotic. Neck: Supple. Chest: Clear. Cardiovascular: Regular rate and rhythm. Abdomen: Soft. There is an ostomy bag on the left side of the abdominal wall which has some fecal material. The GRACIELA drain has been removed. There is a sterile dressing over the surgical wound. 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 Follows commands and conversational. LABORATORY DATA: WBC is 18.84, hemoglobin is 8.0, platelet count is 1,058. Chemistry is reviewed and unremarkable. ASSESSMENT: 1. Perforated hollow viscus status post right hemicolectomy and sigmoid resection. Today is day 11 postop. NG tube is removed. Patient is tolerating a diet. 2. Acute fecal peritonitis with sepsis. Patient is on Zosyn. Today is day 11. Will continue this for a total of 14 days. 3. Paroxysmal atrial fibrillation. Patient is on p.o. amiodarone. 4. Acute kidney injury, improved. 5. Thrombocytosis, likely reactive. The patient has been given a unit of IV iron. 6. 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 Dr. Martinez is on board. I understand they will start managing this on an outpatient basis. 7. Generalized weakness and deconditioning. Patient will need physical rehabilitation. We have already consulted social studies department chair for rehab placement. cc: Fabian Portillo MD
[2017-01-20] MEDS: AVAPRO PO SCH (21:30)
[2017-01-21] MEDS: ZOSYN 3.375 GM/NS 3.375 GM/50 ML IVPB IV SCH ×2 (03:01→08:34)
[2017-01-21] MEDS: ALBUTEROL NEB INH SCH ×6 (03:25→23:26)
[2017-01-21 05:22] LABS: AGAP 15; ALBUMIN 2.3 g/dL (3.5-5.0); ALKALINE PHOSPHATASE 73 U/L (32-122); BUN 30 mg/dL (8-22); CALCIUM 8.1 mg/dL (8.8-10.2); CHLORIDE 98 mmol/L (98-107); COSMO 282; GOT 28 U/L (10-34); GPT 13 U/L (10-44); MAGNESIUM 2.1 mg/dL (1.5-2.7); POTASSIUM 3.8 mmol/L (3.5-5.1); PREALBUMIN 9.4 mg/dL (20-40); SODIUM 138 mmol/L (136-145); TCO2 25 mmol/L (25-35); TOTAL BILIRUBIN 0.85 mg/dL (0.20-1.00); TOTAL PROTEIN 5.9 g/dL (6.3-8.3); TRIGLYCERIDES 111 mg/dL (39-160)
[2017-01-21] MEDS: HEPARIN SUBQ SCH ×5 (05:42→23:09)
[2017-01-21] MEDS: PRILOSEC PO SCH ×2 (05:43→06:47)
[2017-01-21 05:51] LABS: HEMATOCRIT 25.6 % (42.0-52.0); MCH 26.5 PG (27-31); MCHC 31.3 g/dL (33-37); MCV 84.8 FL (81-99); MPV 8.9 FL (7.4-10.4); RBC 3.02 XMIL (4.7-6.1)
--- NOTE | 2017-01-21 06:51 | PROGRESS NOTE ---
DATE: 01/21/2017 SUBJECTIVE: Patient doing well, tolerating a diet. He overall has no major issues. OBJECTIVE: Vital Signs: Patient is currently afebrile. His vital signs are stable. General: No acute distress. Cardiovascular: Regular rate and rhythm. Lungs: Grossly clear. Abdomen: Soft, nontender, nondistended. GRACIELA drain removed. Ostomy viable, with output. 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 Postoperative state at this time. Patient is doing well. He can be transferred to a rehab facility once all arrangements are made. At that time, they can remove his central line. Patient is to follow up with me in 1-2 weeks. cc: MD Fabian Virgen MD
--- NOTE | 2017-01-21 06:54 | EKG Report ---
Test Performed on : 01/21/2017 06:12:03 AM Test Reason : atrial fibrillation Blood Pressure : / mmHG Vent. Rate : 077 BPM Atrial Rate : 077 BPM P-R Int : 120 ms QRS Dur : 110 ms QT Int : 378 ms P-R-T Axes : 000 -33 060 degrees QTc Int : 427 ms Sinus rhythm. with premature atrial complexes. Left axis deviation Abnormal ECG When compared with ECG of 20-JAN-2017 06:08, (Unconfirmed) premature atrial complexes. are now present Criteria for Septal infarct are no longer present T wave inversion no longer evident in Inferior leads T wave inversion no longer evident in Lateral leads QT has shortened Confirmed by Lyndsey Rushing MD ([id number]) on 01/22/2017 12:26:58 PM
[2017-01-21] MEDS: LYRICA PO SCH ×2 (08:34→22:06)
[2017-01-21] MEDS: LOFIBRA PO SCH (08:34)
[2017-01-21] MEDS: COENZYME Q10 PO SCH ×2 (08:34→22:07)
[2017-01-21] MEDS: CORDARONE PO SCH ×3 (08:34→16:35)
[2017-01-21] MEDS: LIVALO PO SCH (08:34)
--- NOTE | 2017-01-21 09:33 | PROGRESS NOTE ---
DATE: 01/20/2017 CHIEF COMPLAINT: Irregular heart beat. SUBJECTIVE: Mr. Watkins is much more awake and alert today. He is really feeling definitely better. He denies having any significant pain. No palpitations. No shortness of breath. He just had a bath and feels much better. OBJECTIVE: Blood pressure is 122/49, temperature 97.6, pulse 69, respirations 16. He is awake, alert and oriented, in no distress. HEENT is unremarkable. Chest has diminished breath sounds bilaterally. Heart sounds are regular and rhythmic. No gallop or murmur. Abdomen is slightly tender. No masses noted. Extremities showed no edema. Pulses are slightly diminished. Neurologic: Awake, alert and oriented x3, follows commands. Moves all 4 extremities. DIAGNOSTIC DATA: Today his blood work shows white count is 11,840, hemoglobin 8.0, hematocrit 25.3, his platelet count has climbed all the way up to 1,058,000. His white count is 11,840. Sodium is 135, potassium 4.6, BUN is 31, creatinine 1.1. His ferritin is 169, saturation is 21%, iron 51. His albumin is 2.4. IMPRESSION: 1. The patient had paroxysmal atrial fibrillation coinciding with a perforated hollow viscus, perforated bowel, status post bowel resection. He has maintained sinus rhythm now. 2. Finding of diffuse B cell lymphoma. 3. Thrombocytosis. 4. Hypertension. 5. Hyperlipidemia. RECOMMENDATIONS: From a cardiology viewpoint, the patient appears to be quite stable at this time. I will continue present management. He is on amiodarone, and eventually he should be weaned off of that medication as the days progress. Thank you again for the opportunity to participate in his evaluation. cc: MD Fabian Courtney MD
--- NOTE | 2017-01-21 10:39 | EKG Report ---
Test Performed on : 01/19/2017 04:30:49 AM Test Reason : CIC. Not ordered in [place] Blood Pressure : / mmHG Vent. Rate : 082 BPM Atrial Rate : 074 BPM P-R Int : 000 ms QRS Dur : 104 ms QT Int : 380 ms P-R-T Axes : 000 -41 051 degrees QTc Int : 443 ms Atrial fibrillation. with a competing junctional pacemaker. Left axis deviation Septal infarct , age undetermined Abnormal ECG When compared with ECG of 12-JAN-2017 14:13, Vent. rate has decreased BY 72 BPM Confirmed by Lyndsey Rushing MD ([id number]) on 01/22/2017 12:24:48 PM
--- NOTE | 2017-01-21 10:45 | EKG Report ---
Test Performed on : 01/20/2017 06:08:05 AM Test Reason : atrial fibrillation Blood Pressure : / mmHG Vent. Rate : 067 BPM Atrial Rate : 067 BPM P-R Int : 170 ms QRS Dur : 104 ms QT Int : 508 ms P-R-T Axes : 035 -29 011 degrees QTc Int : 536 ms Normal sinus rhythm. Septal infarct (cited on or before 19-JAN-2017) T wave abnormality, consider lateral ischemia Abnormal ECG When compared with ECG of 19-JAN-2017 04:30, (Unconfirmed) Sinus rhythm. has replaced Atrial fibrillation. T wave inversion now evident in Inferior leads T wave inversion now evident in Lateral leads QT has lengthened Confirmed by Lyndsey Rushing MD ([id number]) on 01/22/2017 12:25:53 PM
--- NOTE | 2017-01-21 15:51 | PROGRESS NOTE ---
DATE: 01/21/2017 SUBJECTIVE: Today Ms. Watkins refers to be doing a lot better. Denies any complaints. OBJECTIVE: Vital signs: Blood pressure is 118/52, pulse of 75, respirations 18, temperature is 98.2 degrees. Patient is saturating 94 to 96% on 2 L of oxygen. General exam: Mr. Watkins is an 86-year-old male. He is in bed, not seemingly distressed. HEENT: Mucosa is pink and moist. Anicteric. Acyanotic. Neck: Supple. There is a right IJ central line catheter. Chest: Good air entry bilaterally. Few bibasilar crepitations. Cardiovascular: Regular rate and rhythm. There are no murmurs. Abdomen: Soft, nontender. Surgical wound looks clean. There is an ostomy bag on the left side of the abdominal wall with some fecal material. GRACIELA drain has been removed. 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 However, family members think that occasionally he gets confused. LABORATORY DATA: WBC is 12.55, hemoglobin is 8.0, platelet count of 1,264. Chemistry is reviewed and is completely normal. Prealbumin is 9.4. ASSESSMENT: 1. Perforated hollow viscus status post right hemicolectomy and sigmoid resection. Today is day 12 postop. Patient is tolerating a diet. 2. Acute fecal peritonitis with sepsis on presentation. Patient is on IV Zosyn. Today is day 12. We are going to switch this to p.o. levofloxacin to complete a total of 14 days. 3. Paroxysmal atrial fibrillation. Patient is on p.o. amiodarone. He is currently in normal sinus rhythm. 4. Acute kidney injury, improved. 5. Thrombocytosis, likely reactive. The patient was given a unit of IV iron yesterday. Platelet count has actually gone higher today. We are going to remove the Johnston catheter. Will remove the central line. Hopefully that will minimize some of the inflammatory response, but I think as his general medical condition improves the platelet count will get better. Patient is being followed up by hematology/oncology any way. 6. 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 Patient will continue follow up with Dr. Martinez. 7. Generalized weakness and deconditioning. The delinquency prevention social worker has been consulted for rehab. PLAN: So in general, I think from medical standpoint Mr. Watkins can be discharged. We will discontinue his IV antibiotics and switch him to p.o. levofloxacin for a total of 14 days of antibiotics for the peritonitis. We are going to remove his Johnston catheter and remove the central line. He will follow up with Dr. Martinez on the diffuse B-cell lymphoma as well as the thrombocytosis. He remains in sinus rhythm but he will continue on the amiodarone p.o.. cc: Fabian Portillo MD
[2017-01-21] MEDS: AVAPRO PO SCH (22:07)
[2017-01-22] MEDS: ALBUTEROL NEB INH SCH ×6 (03:18→23:33)
[2017-01-22 04:30] LABS: MPV 8.9 FL (7.4-10.4)
[2017-01-22 04:31] LABS: HEMATOCRIT 24.7 % (42.0-52.0); HEMOGLOBIN 7.8 g/dL (14.0-18.0); MCH 26.4 PG (27-31); MCHC 31.6 g/dL (33-37); MCV 83.4 FL (81-99); RBC 2.96 XMIL (4.7-6.1)
[2017-01-22 04:32] LABS: PLT 1209 X1000 (130-400)
[2017-01-22 04:58] LABS: AGAP 12; ALBUMIN 2.5 g/dL (3.5-5.0); ALKALINE PHOSPHATASE 71 U/L (32-122); BUN 26 mg/dL (8-22); CALCIUM 8.4 mg/dL (8.8-10.2); CHLORIDE 101 mmol/L (98-107); COSMO 281; GOT 22 U/L (10-34); GPT 11 U/L (10-44); POTASSIUM 3.6 mmol/L (3.5-5.1); SODIUM 138 mmol/L (136-145); TCO2 25 mmol/L (25-35); TOTAL BILIRUBIN 0.63 mg/dL (0.20-1.00); TOTAL PROTEIN 5.8 g/dL (6.3-8.3); TRIGLYCERIDES 107 mg/dL (39-160)
[2017-01-22 05:01] LABS: BANDS 10 % (0-1); HYPOCHROM 1+; LYMPHS 8 % (21-51); MONO 4 % (1-9)
[2017-01-22] MEDS: PRILOSEC PO SCH (06:19)
[2017-01-22] MEDS: HEPARIN SUBQ SCH ×3 (06:19→23:22)
--- NOTE | 2017-01-22 07:11 | Diag Imaging Result Doc PS360 ---
EXAM: CHEST-PORTABLE HISTORY: abnormal exam TECHNIQUE: AP portable at 0500 COMMENT: There is retrocardiac opacity and obscuration of the left heart border. This has not changed since 01/18/2017. Some clearing of the left upper lobe has occurred since the previous study however. IMPRESSION: Left lower lobe atelectasis and/or pneumonia. Electronically signed by Alban Allen 01/22/2017 7:09 AM
--- NOTE | 2017-01-22 07:23 | EKG Report ---
Test Performed on : 01/22/2017 06:30:08 AM Test Reason : atrial fibrillation Blood Pressure : / mmHG Vent. Rate : 075 BPM Atrial Rate : 075 BPM P-R Int : 168 ms QRS Dur : 126 ms QT Int : 396 ms P-R-T Axes : 071 -19 081 degrees QTc Int : 442 ms Sinus rhythm. with premature atrial complexes. Nonspecific intraventricular block Abnormal ECG When compared with ECG of 21-JAN-2017 06:12, (Unconfirmed) No significant change was found Confirmed by Lyndsey Rushing MD ([id number]) on 01/22/2017 12:28:28 PM
[2017-01-22] MEDS: LYRICA PO SCH ×2 (08:21→20:50)
[2017-01-22] MEDS: COENZYME Q10 PO SCH ×2 (08:22→20:50)
[2017-01-22] MEDS: LIVALO PO SCH (08:22)
[2017-01-22] MEDS: LEVAQUIN PO SCH (08:22)
[2017-01-22] MEDS: CORDARONE PO SCH ×3 (08:22→16:19)
[2017-01-22] MEDS: LOFIBRA PO SCH (08:23)
[2017-01-22] MEDS: ASPIRIN PO SCH (08:23)
[2017-01-22 12:26] LABS: HEMOGLOBIN A1C 5.5 % (4.8-6.0)
--- NOTE | 2017-01-22 13:26 | PROGRESS NOTE ---
DATE: 01/22/2017 SUBJECTIVE: Patient doing well. No major issues. OBJECTIVE: Vital Signs: Patient is currently afebrile. His vital signs stable. General: No acute distress. Cardiovascular: Regular rate and rhythm. Lungs: Grossly clear. Abdomen: Soft, nontender, nondistended. Ostomy viable with output. LABORATORY: Reviewed. Of note patient's white blood cell count 11, hematocrit is 25, his platelet count is over 1 million. Remainder of labs reviewed. His albumin is 2.5. 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 Postoperative state. At this time patient is doing well. He can be transferred to rehab facility once all arrangements made. His central line is out. His Johnston catheter has been removed. I started him on aspirin given his elevated platelet count. Will continue to monitor. cc: MD Nicole Virgen MD
[2017-01-22] MEDS: HALDOL IV PRN (19:31)
[2017-01-22] MEDS: AVAPRO PO SCH (20:50)
--- NOTE | 2017-01-22 21:14 | PROGRESS NOTE ---
DATE: 01/22/2017 SUBJECTIVE: The patient is resting comfortably in bed. His is present at the bedside. The patient states that he ate well this morning. OBJECTIVE: Vital Signs: Temperature 98 degrees, blood pressure 143/54, heart rate 93, respirations 20, O2 saturations 95% on room air. General: This is an elderly male, lying in bed, in no acute distress. Head: Normocephalic, atraumatic. Heart: S1, S2. Normal. Regular rate and rhythm. Lungs: Clear air entry bilaterally. No crackles, no rales. Abdomen: Positive bowel sounds. Soft, nontender, nondistended. Extremities: No edema. No cyanosis. No calf tenderness. Neurologic: The patient is alert and oriented x3. LABORATORY: White blood cell count 11, hemoglobin 7.8, hematocrit 24, platelets 1200. Sodium 138, potassium 3.6, chloride 101, CO2 25, BUN 26, creatinine 1, glucose 115, calcium 8.4. ASSESSMENT AND PLAN: 1. Status post right hemicolectomy and sigmoid resection secondary to a perforated viscus. Stable. 2. Prior sepsis secondary to peritonitis. Improved. The patient is now on oral Levaquin. 3. Paroxysmal atrial fibrillation. Continue on amiodarone. The patient is rate controlled. 4. Acute kidney injury. Resolved. 5. Thrombocytosis. We will follow up on the JAK2 assay that has been sent. The patient has been started on aspirin by Dr. Peres. The patient will need to follow up with Dr. Martinez upon discharge from rehab. 6. Hypertension. Controlled. 7. Diffuse B-cell lymphoma. The patient will follow up with Dr. Martinez as outpatient. 8. Generalized weakness and debility. financial services rep is working on rehab placement. We are currently awaiting insurance approval for rehab for the patient. 9. Deep vein thrombosis prophylaxis. Continue on heparin 5000 units subcutaneous every 12 hours. 10. Continue with physical therapy. cc: MD ARIEL Larsen
--- NOTE | 2017-01-23 00:50 | PROGRESS NOTE ---
DATE: 01/22/2017 SUBJECTIVE: Mr. Watkins continues asymptomatic from a cardiovascular standpoint. He has been making progress with recovery. However he continues weak and is just starting to mobilize. OBJECTIVE: Vital Signs: Blood pressure 143/54, heart rate 89 and regular with ECG monitor showing sinus rhythm with frequent premature supraventricular complexes. Chest: Clear to auscultation. Cardiac Exam: Reveals a regular rate and rhythm without appreciable murmur or gallop. There is no evidence of peripheral edema. IMPRESSION: 1. Postoperative atrial fibrillation. Patient continues in sinus rhythm with premature atrial contractions on amiodarone. 2. 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 Patient presented with acute abdomen, perforated sigmoid colon and fecal peritonitis. 3. 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 RECOMMENDATIONS: Continue amiodarone for now with plans to eventually taper this off as he recovers further. cc: MD Nicole Hollins MD
[2017-01-23] MEDS: ALBUTEROL NEB INH SCH ×6 (03:10→23:15)
[2017-01-23 05:17] LABS: HEMATOCRIT 25.7 % (42.0-52.0); HEMOGLOBIN 7.9 g/dL (14.0-18.0); MCH 26.6 PG (27-31); MCHC 30.7 g/dL (33-37); MCV 86.5 FL (81-99); MPV 9.2 FL (7.4-10.4); RBC 2.97 XMIL (4.7-6.1)
[2017-01-23 05:40] LABS: AGAP 12; ALBUMIN 2.3 g/dL (3.5-5.0); ALKALINE PHOSPHATASE 65 U/L (32-122); BUN 19 mg/dL (8-22); CALCIUM 8.1 mg/dL (8.8-10.2); CHLORIDE 105 mmol/L (98-107); COSMO 284; GOT 16 U/L (10-34); GPT 11 U/L (10-44); SODIUM 141 mmol/L (136-145); TCO2 24 mmol/L (25-35); TOTAL BILIRUBIN 0.57 mg/dL (0.20-1.00); TOTAL PROTEIN 5.7 g/dL (6.3-8.3)
[2017-01-23 05:47] LABS: FREE T4 1.2 ng/dL (0.93-1.70)
[2017-01-23] MEDS: PRILOSEC PO SCH (06:13)
[2017-01-23] MEDS: HEPARIN SUBQ SCH ×3 (06:16→23:40)
[2017-01-23] MEDS: LYRICA PO SCH ×2 (08:57→20:16)
[2017-01-23] MEDS: LOFIBRA PO SCH (08:58)
[2017-01-23] MEDS: LIVALO PO SCH (08:58)
[2017-01-23] MEDS: ASPIRIN PO SCH (08:58)
[2017-01-23] MEDS: CORDARONE PO SCH ×3 (08:58→17:51)
[2017-01-23] MEDS: LEVAQUIN PO SCH (08:58)
[2017-01-23] MEDS ORDERED: VITAMIN D PO SCH (09:00)
--- NOTE | 2017-01-23 09:27 | PROGRESS NOTE ---
DATE: 01/23/2017 SUBJECTIVE: Patient doing okay. No major issues. OBJECTIVE: Vital Signs: Patient is currently afebrile. His vital signs are stable. General exam: No acute distress. Resting comfortably in bed. Cardiovascular: Regular rate and rhythm. Lungs: Grossly clear. Abdomen: Soft, nontender, nondistended. Incision healing well. Ostomy functioning. LABORATORY REVIEWED: White blood cell count is 10, hematocrit 25, platelet count 1353. Remainder of labs reviewed. His albumin is 2.3. 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 1. Postoperative state at this time. Patient doing well. He is 14 days out from his operation. Will ask the nurses to remove his michael and place Steri-Strips. Once everything has been arranged, he can go to a rehabilitation facility. I will give him aspirin given his elevated platelet count. The patient's overall clinical status is improved. cc: MD Nicole Virgen MD
[2017-01-23] MEDS ORDERED: VENOFER 200 MG in NS 150 ML IV ONE (11:00)
[2017-01-23] MEDS: COENZYME Q10 PO SCH ×2 (11:45→20:17)
--- NOTE | 2017-01-23 14:43 | PROGRESS NOTE ---
DATE: 01/23/2017 SUBJECTIVE: The patient is resting comfortably in bed. No acute events noted overnight. OBJECTIVE: Vital Signs: Temperature 98.3 degrees, blood pressure 154/76, heart rate 72, respirations 16, O2 saturations 97% on 3 L nasal cannula. General: This is a chronically ill- appearing, elderly male, lying in bed, in no acute distress. Head: Normocephalic, atraumatic. Heart: S1, S2 normal. Lungs: Clear to auscultation bilaterally. Abdomen: Positive bowel sounds. Soft, nontender, nondistended. Extremities: No edema. No cyanosis. No calf tenderness. Neurologic: The patient is alert and oriented to person and place. The patient does have periods of confusion. LABS: White blood cell count 10, hemoglobin 7.9, hematocrit 25, platelets 1353. Sodium 141, potassium 4, chloride 105, CO2 24, BUN 19, creatinine 0.9, glucose 110. Calcium 8.1. ASSESSMENT AND PLAN: 1. Thrombocytosis. Continue with aspirin therapy. The Eh II mutation essay came back negative. Dr. Martinez was notified about the increasing platelet counts. Will give the patient a dose of intravenous iron at his request. Will continue to monitor the platelet count closely. 2. Sepsis secondary to peritonitis. Improved. Continue on oral Levaquin. This is day 14 of 14 days of therapy. We will discontinue the antibiotics after today. 3. Status post right hemicolectomy and sigmoid resection secondary to perforated viscus. Stable. 4. Paroxysmal atrial fibrillation. Continue on amiodarone. 5. Diffuse B-cell lymphoma. The patient will follow up with Dr. Villegas as an outpatient to undergo further imaging. 6. Hypertension. Controlled. 7. Generalized weakness and debility. 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 8. Deep vein thrombosis prophylaxis. Continue on heparin 5000 units subcutaneous every 12 hours. 9. Continue with physical therapy. cc: Nicole Drummond MD
--- NOTE | 2017-01-23 15:39 | PROGRESS NOTE ---
DATE: 01/23/2017 SUBJECTIVE: The patient continues without chest discomfort or dyspnea. OBJECTIVE: Vital Signs: Blood pressure 118/56. Heart rate 71 with ECG monitor showing sinus rhythm with occasional premature supraventricular complex. Chest: Clear to auscultation. Cardiac exam: Reveals a regular rate and rhythm without appreciable murmur or gallop. Extremities: There is no evidence of peripheral edema. IMPRESSION: 1. Postoperative atrial fibrillation. Patient continues in sinus rhythm with premature atrial complexes on amiodarone. 2. 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 Patient presented with acute abdomen, perforated sigmoid colon and fecal peritonitis. 3. Diffuse B-cell lymphoma in abdominal cavity. RECOMMENDATIONS: Taper amiodarone to 200 mg twice daily for another week after which it should be reduced to 200 mg daily. Would ultimately discontinue amiodarone after another 2 weeks and follow up response. cc: MD Nicole Hollins MD
[2017-01-23] MEDS: AVAPRO PO SCH (20:17)
[2017-01-24] MEDS: ALBUTEROL NEB INH SCH ×5 (03:35→19:22)
[2017-01-24 05:24] LABS: HEMATOCRIT 25.7 % (42.0-52.0); HEMOGLOBIN 7.8 g/dL (14.0-18.0); MCH 26.7 PG (27-31); MCHC 30.4 g/dL (33-37); RBC 2.92 XMIL (4.7-6.1)
[2017-01-24 05:35] LABS: AGAP 8; ALBUMIN 2.5 g/dL (3.5-5.0); ALKALINE PHOSPHATASE 64 U/L (32-122); BUN 15 mg/dL (8-22); CALCIUM 8.8 mg/dL (8.8-10.2); CHLORIDE 109 mmol/L (98-107); COSMO 281; GOT 17 U/L (10-34); GPT 11 U/L (10-44); POTASSIUM 4.5 mmol/L (3.5-5.1); SODIUM 140 mmol/L (136-145); TCO2 23 mmol/L (25-35); TOTAL BILIRUBIN 0.48 mg/dL (0.20-1.00); TOTAL PROTEIN 5.8 g/dL (6.3-8.3)
[2017-01-24] MEDS: PRILOSEC PO SCH (06:05)
[2017-01-24] MEDS: HEPARIN SUBQ SCH ×3 (06:05→23:06)
[2017-01-24] MEDS: LOFIBRA PO SCH (08:22)
[2017-01-24] MEDS: LEVAQUIN PO SCH (08:22)
[2017-01-24] MEDS: COENZYME Q10 PO SCH ×2 (08:22→20:35)
[2017-01-24] MEDS: CORDARONE PO SCH ×2 (08:22→20:36)
[2017-01-24] MEDS: ASPIRIN PO SCH (08:23)
[2017-01-24] MEDS: LYRICA PO SCH ×2 (08:23→20:36)
[2017-01-24] MEDS: LIVALO PO SCH (08:23)
--- NOTE | 2017-01-24 09:58 | PROGRESS NOTE ---
DATE: 01/24/2017 SUBJECTIVE: The patient doing okay. No major issues. OBJECTIVE: Vital Signs: Patient is currently afebrile. His vital signs stable. General: No acute distress. Resting comfortably in bed. Cardiovascular: Regular rate and rhythm. Lungs: Grossly clear. Abdomen: Soft, nontender, nondistended. Incisions healing well. Ostomy is functioning. LABORATORY REVIEWED: Of note, his white blood cell count 10, hematocrit 25 and platelet count 1380. ASSESSMENT/PLAN: An 86-year-old, male status post right hemicolectomy and sigmoid resection for perforated sigmoid colon and a fistula of the small bowel. Postoperatively, at this time he is doing well. Whenever he can have his arrangements made to be discharged, he is okay to be discharged from a general surgery point of view. Just awaiting rehabilitation placement. cc: MD Nadir Virgen MD
--- NOTE | 2017-01-24 14:37 | PROGRESS NOTE ---
DATE: 01/24/2017 SUBJECTIVE: When I evaluated this patient, he was sitting on a chair. No acute events overnight. No pain. OBJECTIVE: Vital Signs: Temperature 98.3 degrees, pulse 77, respiratory rate 18, blood pressure 150/75, oxygen saturation 100% on 2 L of nasal cannula. HEENT: Head normocephalic. No trauma. PERRLA. Neck: Supple. No JVD. No masses. Central trachea. Cardiovascular: RRR. No murmurs. Chest: Clear to auscultation. No wheezing. No rales. Abdomen: Soft. Positive bowel sounds. He has a colostomy bag on the left side of the abdomen. Extremities: No edema. No clubbing. No cyanosis. Neurological examination: The patient is alert and oriented x3. He moves all 4 extremities. LABORATORY: WBC 10.4, hemoglobin 7.8, hematocrit 25.7, platelet count 1380. Sodium 140, potassium 4.5, chloride 109, bicarbonate 23, BUN 15, creatinine 0.9, glucose 105, calcium 8.8, albumin 2.5. ASSESSMENT AND PLAN: 1. Thrombocytosis. Continue with aspirin. The JAK2 mutation assay came back negative. Dr. Martinez was notified about these results. His platelets are a little bit higher compared with yesterday. He received intravenous iron. I will try to communicate with Dr. Martinez today. This patient looks stable, and we are planning to discharge this patient to a rehabilitation center. 2. Sepsis secondary to peritonitis, improved. He used to be on Levaquin, but this has been stopped after 14 days. 3. Status post right hemicolectomy and sigmoid resection secondary to perforated viscus, stable. 4. Paroxysmal atrial fibrillation. Continue on amiodarone. I have decreased the dose of amiodarone for 400 t.i.d. to 200 mg b.i.d. for 1 week, and then will be once a day for 2 weeks. We need to follow response. 5. Diffuse B-cell lymphoma. This patient will follow up with Dr. Martinez as an outpatient to undergo further imaging and treatment. 6. Hypertension, stable. 7. Generalized weakness and physical deconditioning. We are looking for rehabilitation center placement. Physical therapy is on board. 8. Deep vein thrombosis prophylaxis. Continue with heparin twice a day. cc: Nadir Lopez MD
[2017-01-24] MEDS ORDERED: NS 1,000 ML IV SCH (17:44)
[2017-01-24] MEDS: AVAPRO PO SCH (20:36)
[2017-01-25] MEDS: ALBUTEROL NEB INH SCH ×7 (03:20→23:35)
[2017-01-25 04:50] LABS: BASO% 1.7 % (0.0-0.8); EOS# 0.17 X1000 (0.0-0.7); HEMATOCRIT 27.1 % (42.0-52.0); HEMOGLOBIN 8.3 g/dL (14.0-18.0); IMM GRAN# 0.12 X1000 (0.0-0.04); IMM GRAN% 1.4 % (0.0-0.5); LYMPH# 0.95 X1000 (1.2-3.4); LYMPH% 11.3 % (20.5-51.1); MANUAL DIFF NEEDED? NO; MCH 26.3 PG (27-31); MCHC 30.6 g/dL (33-37); MONO# 0.83 X1000 (0.11-0.59); MONO% 9.8 % (1.7-9.3); MPV 8.9 FL (7.4-10.4); NEUT% 73.8 % (42.2-75.2); RBC 3.15 XMIL (4.7-6.1)
[2017-01-25 04:52] LABS: PLT 1422 X1000 (130-400)
[2017-01-25 05:08] LABS: AGAP 11; ALBUMIN 2.6 g/dL (3.5-5.0); ALKALINE PHOSPHATASE 65 U/L (32-122); BUN 13 mg/dL (8-22); CALCIUM 8.9 mg/dL (8.8-10.2); CHLORIDE 106 mmol/L (98-107); COSMO 278; GOT 16 U/L (10-34); GPT 13 U/L (10-44); POTASSIUM 4.1 mmol/L (3.5-5.1); SODIUM 139 mmol/L (136-145); TCO2 22 mmol/L (25-35); TOTAL BILIRUBIN 0.48 mg/dL (0.20-1.00); TOTAL PROTEIN 5.9 g/dL (6.3-8.3); TRIGLYCERIDES 96 mg/dL (39-160)
[2017-01-25] MEDS: PRILOSEC PO SCH (06:01)
[2017-01-25] MEDS: HEPARIN SUBQ SCH ×3 (06:01→23:48)
[2017-01-25] MEDS ORDERED: NS 1,000 ML IV SCH (08:04)
--- NOTE | 2017-01-25 08:05 | PROGRESS NOTE ---
DATE: 01/25/2017 SUBJECTIVE: No major issues. Still awaiting rehab placement. OBJECTIVE: Vital Signs: Patient is currently afebrile. His vital signs are stable. General: No acute distress. Cardiovascular: Regular rate and rhythm. Lungs: Grossly clear. Abdomen: Soft, nontender, nondistended. Incision is healing well. Ostomy is functioning. LABORATORY: Reviewed. White blood cell count 8, hematocrit 27, platelet count 1422. Remainder of labs reviewed. His albumin is 2.6 which is slowly improving. 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 Postoperative state. At this time, patient is doing well. We will ask the nurses to do wet-to- dry dressing changes to a midline incision. Once he has everything arranged for rehab, he can be discharged to rehab. cc: MD Nadir Virgen MD
[2017-01-25] MEDS: LEVAQUIN PO SCH (09:16)
[2017-01-25] MEDS: 1/2 NS 1,000 ML IV SCH ×2 (09:16→23:49)
[2017-01-25] MEDS: LIVALO PO SCH (09:17)
[2017-01-25] MEDS: ASPIRIN PO SCH (09:17)
[2017-01-25] MEDS: LOFIBRA PO SCH (09:17)
[2017-01-25] MEDS: COENZYME Q10 PO SCH ×2 (09:17→20:33)
[2017-01-25] MEDS: CORDARONE PO SCH ×2 (09:17→20:33)
[2017-01-25] MEDS: LYRICA PO SCH ×2 (09:17→20:33)
[2017-01-25] MEDS: NORVASC PO SCH ×2 (09:17→20:33)
[2017-01-25] MEDS: PREDNISONE PO SCH (10:42)
[2017-01-25] MEDS ORDERED: VENOFER 500 MG in NS 250 ML IV ONE (11:00)
--- NOTE | 2017-01-25 13:01 | PROGRESS NOTE ---
DATE: 01/25/2017 SUBJECTIVE: When I evaluated this patient, he was sitting on a chair. No acute events overnight. No pain. OBJECTIVE: Vital Signs: Temperature 97.8 degrees, pulse 73, respiratory rate 16, blood pressure 176/57, oxygen saturation 96% on room air. HEENT: Head normocephalic. No trauma. PERRLA. Neck: Supple. No JVD. No masses. Central trachea. Chest: Clear to auscultation. No wheezing. No rales. Abdomen: Soft. Positive bowel sounds. He has a colostomy bag on the left side of the abdomen. No sign of bleed. Extremities: Trace lower extremity edema. No clubbing. No cyanosis. Neurological: The patient is alert, oriented x3. He moves all 4 extremities. LABORATORY: WBC 8.4, hemoglobin 8.3, hematocrit 27.1, platelet 1,422,000. Sodium 139, potassium 4.1, chloride 106, bicarbonate 22, BUN 13, creatinine 0.7, glucose 97, calcium 8.9, albumin 2.6. ASSESSMENT AND PLAN: 1. Thrombocytosis, this is likely reactive. I will continue with aspirin. JAK2 mutation assay came back negative. Dr. Martinez was notified about this result. Platelet count is getting a little bit worse, he will receive iron IV again today, and I will start this patient on low dose prednisone, about 20 mg p.o. daily for 3 days and then decrease the dose to 10 for 3 days and then 5 for 3 days and stop it. 2. Sepsis, secondary to peritonitis, improved. He is still on levofloxacin and his last dose is going to be on the . 3. Status post right hemicolectomy and sigmoid resection secondary to perforated viscus, stable. Surgery Department following this patient. 4. Paroxysmal atrial fibrillation. Continue on amiodarone. He is getting 200 mg b.i.d. for 1 week and then he will be on 200 mg daily for 2 weeks and we will follow his response. Cardiology Department is following this patient. We will continue following their recommendations. 5. Diffuse B-cell lymphoma. This patient will follow up with Dr. Martinez as an outpatient to undergo further imaging and treatment in about 2 weeks. 6. Hypertension. He was a little bit hypertensive today, I added a low dose of amlodipine. We will monitor the blood pressure. Also, he was on normal saline, I switched it to half normal saline. 7. Deep vein thrombosis prophylaxis. Continue with heparin. cc: Nadir Lopez MD
--- NOTE | 2017-01-25 19:04 | PROGRESS NOTE ---
DATE: 01/25/2017 SUBJECTIVE: Patient continues without chest discomfort or dyspnea. OBJECTIVE: Vital Signs: Blood pressure 154/52, heart rate 82 and regular with ECG monitor showing sinus rhythm. There is no significant jugular venous distention. Chest: Clear to auscultation. Cardiac Examination: Reveals a regular rate and rhythm without appreciable murmur or gallop. Extremities: There is no evidence of peripheral edema. LABORATORY DATA: Platelet count one day at 422,000, BUN 13, creatinine 0.7. White blood cell count 8.4. Albumin 2.6. IMPRESSION: 1. Postoperative atrial fibrillation following abdominal surgery and sepsis. 2. 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 The patient presented with acute abdomen and perforated sigmoid colon, fecal peritonitis and sepsis. 3. Diffuse B-cell lymphoma in abdominal cavity. 4. Thrombocytosis. RECOMMENDATIONS: Continue amiodarone orally for now. We plan to taper over the next few weeks. cc: MD Nadir Hollins MD
[2017-01-25] MEDS: AVAPRO PO SCH (20:34)
[2017-01-26] MEDS: ALBUTEROL NEB INH SCH ×6 (03:19→22:49)
[2017-01-26] MEDS: PRILOSEC PO SCH (06:31)
[2017-01-26] MEDS: HEPARIN SUBQ SCH ×3 (06:31→22:00)
[2017-01-26 06:33] LABS: AGAP 12; ALBUMIN 2.8 g/dL (3.5-5.0); ALKALINE PHOSPHATASE 65 U/L (32-122); BUN 11 mg/dL (8-22); CHLORIDE 108 mmol/L (98-107); COSMO 282; GOT 14 U/L (10-34); GPT 11 U/L (10-44); POTASSIUM 4.1 mmol/L (3.5-5.1); SODIUM 142 mmol/L (136-145); TCO2 22 mmol/L (25-35); TOTAL BILIRUBIN 0.48 mg/dL (0.20-1.00); TOTAL PROTEIN 6.3 g/dL (6.3-8.3)
[2017-01-26 06:49] LABS: HEMATOCRIT 27.5 % (42.0-52.0); HEMOGLOBIN 8.5 g/dL (14.0-18.0); MCH 27.2 PG (27-31); MCHC 30.9 g/dL (33-37); MCV 88.1 FL (81-99); MPV 9.2 FL (7.4-10.4); RBC 3.12 XMIL (4.7-6.1)
[2017-01-26] MEDS: LYRICA PO SCH ×2 (08:44→21:54)
[2017-01-26] MEDS: COENZYME Q10 PO SCH ×2 (08:44→21:54)
[2017-01-26] MEDS: NORVASC PO SCH ×2 (08:45→21:55)
[2017-01-26] MEDS: LIVALO PO SCH (08:45)
[2017-01-26] MEDS: CORDARONE PO SCH ×2 (08:45→21:55)
[2017-01-26] MEDS: ASPIRIN PO SCH (08:45)
[2017-01-26] MEDS: PREDNISONE PO SCH (08:45)
[2017-01-26] MEDS: LEVAQUIN PO SCH (08:45)
[2017-01-26] MEDS: LOFIBRA PO SCH (09:06)
--- NOTE | 2017-01-26 12:05 | PROGRESS NOTE ---
DATE: 01/26/2017 SUBJECTIVE: This patient looks better today. Has no specific complaints, no acute events overnight. OBJECTIVE: Vital Signs: Temperature 97.7 degrees, pulse 68, respiratory rate 16, blood pressure 151/58, oxygen saturation 95% on room air. HEENT: Head normocephalic. No trauma. PERRLA. Neck: Supple. No JVD. No masses. Central trachea. Chest: Clear to auscultation. No wheezing. No rales. Abdomen: Is soft, positive bowel sounds. He has a colostomy bag on the left side of the abdomen. No signs of bleed. Extremities: Trace lower extremity edema. No clubbing. No cyanosis. Neurological: The patient is alert and oriented x3. He moves all 4 extremities. LABORATORY: WBC 9.8, hemoglobin 8.5, hematocrit 27.5, platelet 1 million 372,000. Sodium 142, potassium 4.1, chloride 108, bicarbonate 22, BUN 11, creatinine 0.7, glucose 95, calcium 9, albumin 2.8. ASSESSMENT AND PLAN: 1. Thrombocytosis. This is likely reactive. I will continue with aspirin and low dose prednisone. JAK2 mutation assay came back negative. Dr. Martinez was notified about this result. Platelet count is getting a little bit better. He received iron IV yesterday. 2. Sepsis secondary to peritonitis improved. He is still on levofloxacin and his last dose is going to be on the . 3. Status post right hemicolectomy and sigmoid resection secondary to perforated viscus, stable. Surgery department following this patient. 4. Paroxysmal atrial fibrillation. Continue with amiodarone. Cardiology department is following this patient. He is getting 200 mg b.i.d. for 1 week and then he will receive 200 mg p.o. daily for 2 weeks. I will follow his response. 5. Diffuse B-cell lymphoma. This patient will follow up with Dr. Martinez as an outpatient to undergo further imaging and treatment in about 2 weeks after discharge. 6. Hypertension. Better controlled. Continue to monitor. 7. Physical deconditioning. Continue with physical therapy. 8. Deep vein thrombosis prophylaxis. Continue with heparin. cc: Nadir Lopez MD
--- NOTE | 2017-01-26 12:31 | PROGRESS NOTE ---
DATE: 01/26/2017 SUBJECTIVE: Feels well. No abdominal pain. No nausea, vomiting. He is tolerating a diet. OBJECTIVE: No fevers. No tachycardia. Blood pressure has been normal 151/58 for him. Ox saturation 95% on 1 L.Abdomen: Soft, nontender, nondistended. Incisions clean. There is opening between the staple with healthy granulation tissue. Gas and stool in the ostomy bag with a good fitting appliance. I reviewed his labs. ASSESSMENT/PLAN: An 86-year-old male, status post right colectomy with Mireille's procedure as well. He is doing well. Mostly rehabilitation is his need right now. Continue to follow along. Plan for further disposition early next week. cc: MD Nadir Isbell MD
[2017-01-26] MEDS: 1/2 NS 1,000 ML IV SCH (12:58)
[2017-01-26] MEDS: AVAPRO PO SCH (21:54)
[2017-01-27] MEDS: ALBUTEROL NEB INH SCH ×6 (03:22→22:42)
[2017-01-27] MEDS: 1/2 NS 1,000 ML IV SCH ×2 (03:41→17:33)
[2017-01-27] MEDS: HEPARIN SUBQ SCH ×3 (06:11→22:30)
[2017-01-27] MEDS: PRILOSEC PO SCH (06:11)
[2017-01-27 06:26] LABS: AGAP 9; ALBUMIN 2.7 g/dL (3.5-5.0); ALKALINE PHOSPHATASE 65 U/L (32-122); BUN 15 mg/dL (8-22); CHLORIDE 108 mmol/L (98-107); COSMO 278; GOT 16 U/L (10-34); GPT 15 U/L (10-44); POTASSIUM 3.6 mmol/L (3.5-5.1); SODIUM 139 mmol/L (136-145); TCO2 22 mmol/L (25-35); TOTAL BILIRUBIN 0.44 mg/dL (0.20-1.00); TOTAL PROTEIN 6.1 g/dL (6.3-8.3)
[2017-01-27 06:41] LABS: MANUAL DIFF NEEDED? NO
[2017-01-27 06:42] LABS: BASO% 0.6 % (0.0-0.8); EOS# 0.06 X1000 (0.0-0.7); EOS% 0.7 % (0.0-10.0); HEMATOCRIT 27.7 % (42.0-52.0); HEMOGLOBIN 8.7 g/dL (14.0-18.0); IMM GRAN% 1.2 % (0.0-0.5); LYMPH# 1.09 X1000 (1.2-3.4); LYMPH% 12.7 % (20.5-51.1); MCH 27.2 PG (27-31); MCHC 31.4 g/dL (33-37); MCV 86.6 FL (81-99); MONO# 0.83 X1000 (0.11-0.59); MONO% 9.7 % (1.7-9.3); MPV 9.3 FL (7.4-10.4); NEUT% 75.1 % (42.2-75.2); PLT 1274 X1000 (130-400)
[2017-01-27] MEDS: COENZYME Q10 PO SCH ×2 (08:30→21:00)
[2017-01-27] MEDS: CORDARONE PO SCH ×2 (08:36→22:30)
[2017-01-27] MEDS: LIVALO PO SCH (08:36)
[2017-01-27] MEDS: PREDNISONE PO SCH (08:36)
[2017-01-27] MEDS: LYRICA PO SCH ×2 (08:36→22:24)
[2017-01-27] MEDS: NORVASC PO SCH ×2 (08:37→22:28)
[2017-01-27] MEDS: ASPIRIN PO SCH (08:38)
[2017-01-27] MEDS: LOFIBRA PO SCH (08:38)
--- NOTE | 2017-01-27 09:23 | PROGRESS NOTE ---
DATE: 01/27/2017 SUBJECTIVE: Moved to the regular floor overnight. No complaints. Tolerating breakfast. Ostomy is working well. No fevers. No tachycardia. OBJECTIVE: Vital Signs: Blood pressure 152/93. General: He is alert, in no acute distress. He is eating breakfast. Coloring is good. Overall seems in good spirits. Laboratory Data: White count is 8, hematocrit is 27. Creatinine 0.9, glucose is 100. ASSESSMENT/PLAN: An 86-year-old male, status post right colon with end colostomy and sigmoid resection. Overall, he is doing well. Mostly rehabilitation, at this point, nutrition. Continue to monitor him. He is out of bed, in chair today. I have encouraged him to this most of the day today. cc: MD Nadir Isbell MD
--- NOTE | 2017-01-27 16:35 | PROGRESS NOTE ---
DATE: 01/27/2017 SUBJECTIVE: This patient looks better today. No acute events overnight. OBJECTIVE: Vital signs: Temperature 97.2 degrees, pulse 76, respiratory rate 16, blood pressure 152/93, oxygen saturation 98 on room air. HEENT: Head normocephalic. No trauma. PERRLA. Neck: Supple. No JVD. No masses. Central trachea. Chest: Clear to auscultation. No wheezing. No rales. Abdomen: Soft, nontender, nondistended. Positive bowel sounds. He has a colostomy bag on the left side of the abdomen. No signs of bleed. Extremities: No lower extremity edema. No clubbing. No cyanosis. Neurological: The patient is alert and oriented x3. No focal deficits. LABORATORY: WBC 8.5, hemoglobin 8.7, hematocrit 27.7, platelets 1,274,000. Sodium 139, potassium 3.6, chloride 108, bicarbonate 22, BUN 15, creatinine 0.9, glucose 100, calcium 9, albumin 2.7. ASSESSMENT AND PLAN: 1. Thrombocytosis. This is likely reactive. I will continue with aspirin and low dose of prednisone. I will decrease the prednisone from 20 mg daily to 10 mg daily. JAK2 mutation assay came back negative. Dr. Martinez was notified about this result. Platelet count is getting a little bit better. He received iron IV a couple days ago. 2. Sepsis secondary to peritonitis, improved. Today is going to be the last day with antibiotics. 3. Status post right hemicolectomy and sigmoid resection secondary to perforated viscus, stable. Surgery department is following this patient. 4. Paroxysmal atrial fibrillation. Continue with amiodarone. Cardiology department is following this patient. He is getting 200 mg b.i.d. for 1 week and then he will receive 200 mg p.o. daily for 2 weeks. We will follow his response. 5. Diffuse B cell lymphoma. This patient will follow up with Dr. Martinez as an outpatient to undergo for further imaging and treatment in about 2 weeks after discharge. 6. Hypertension. Better controlled. Continue to monitor. 7. Physical deconditioning. Continue physical therapy. 8. Deep vein thrombosis prophylaxis. Continue with heparin. cc: Nadir Lopez MD
[2017-01-27] MEDS: AVAPRO PO SCH (22:28)
[2017-01-28] MEDS: ALBUTEROL NEB INH SCH ×3 (03:02→10:55)
[2017-01-28 06:07] LABS: HEMATOCRIT 29.8 % (42.0-52.0); HEMOGLOBIN 9.3 g/dL (14.0-18.0); MCH 26.9 PG (27-31); MCHC 31.2 g/dL (33-37); MCV 86.1 FL (81-99); MPV 9.2 FL (7.4-10.4); RBC 3.46 XMIL (4.7-6.1)
[2017-01-28 06:19] LABS: AGAP 12; ALBUMIN 2.9 g/dL (3.5-5.0); ALKALINE PHOSPHATASE 66 U/L (32-122); BUN 16 mg/dL (8-22); CALCIUM 9.7 mg/dL (8.8-10.2); CHLORIDE 107 mmol/L (98-107); COSMO 286; GOT 15 U/L (10-34); GPT 16 U/L (10-44); POTASSIUM 4.2 mmol/L (3.5-5.1); SODIUM 143 mmol/L (136-145); TCO2 24 mmol/L (25-35); TOTAL BILIRUBIN 0.46 mg/dL (0.20-1.00); TOTAL PROTEIN 6.1 g/dL (6.3-8.3); TRIGLYCERIDES 86 mg/dL (39-160)
--- NOTE | 2017-01-28 06:27 | PROGRESS NOTE ---
DATE: 01/28/2017 SUBJECTIVE: No major issues. The patient was transferred to the floor from the CICU. Still awaiting rehab placement. OBJECTIVE: Vital Signs: Patient is currently afebrile. His vital signs are stable. General Examination: No acute distress. Cardiovascular: Regular rate and rhythm. Lungs: Grossly clear. Abdomen: Soft, nontender, nondistended. Incision is healing well. Ostomy functioning. LABORATORY: Reviewed from yesterday. 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 At this time, the patient's postoperative status remains stable. We are essentially waiting rehab referrals and just transfer. cc: MD Nadir Virgen MD
[2017-01-28] MEDS: PRILOSEC PO SCH (06:55)
[2017-01-28] MEDS: HEPARIN SUBQ SCH (06:55)
[2017-01-28] MEDS: LOFIBRA PO SCH (08:29)
[2017-01-28] MEDS: COENZYME Q10 PO SCH (08:29)
[2017-01-28] MEDS: NORVASC PO SCH (08:30)
[2017-01-28] MEDS: LYRICA PO SCH (08:30)
[2017-01-28] MEDS: CORDARONE PO SCH (08:30)
[2017-01-28] MEDS: LIVALO PO SCH (08:30)
[2017-01-28] MEDS: ASPIRIN PO SCH (08:32)
[2017-01-28] MEDS ORDERED: PREDNISONE PO SCH (09:00)
[2017-01-28 11:10] VITALS: BP 137/100
--- NOTE | 2017-01-28 12:00 | DISCHARGE SUMMARY ---
ADMISSION DATE: 01/08/2017 DISCHARGE DATE: 01/28/2017 CONSULTATIONS: 1. Dr. Carlos Peres with general surgery. 2. Dr. Paras Verduzco with pulmonology. 3. Dr. Rik Cagle with cardiology. 4. Dr. Martinez with hematology/oncology. PERTINENT PROCEDURES: 1. Abdomen and pelvis CT showed a large amount of free air and trace free fluid in the abdomen from perforation of an abdominal dilated small bowel loop with irregular wall thickening at the anterior pelvis overlying the sigmoid colon, highly concerning for malignancy of the small bowel loop. This could be primary stenting from the adjacent sigmoid colon loop which closely contacts the small bowel loop. 2. Ultrasound-guided IJ central line insertion, exploratory laparotomy with a right hemicolectomy, and open sigmoid resection with end-colostomy performed by Dr. Peres. 3. Abdomen and pelvis CT showed postsurgical changes related to prior partial colectomy, small volume fluid tracking around a liver-spleen, 20 length of small bowel mesenteric edema, bilateral moderate-sized pleural effusion, and bibasilar atelectasis. DISCHARGE DIAGNOSES: 1. Thrombocytosis, likely reactive. The patient will continue with aspirin and low-dose prednisone. Dr. Lopez has decreased the prednisone from 20 daily to 10 daily. JAK2 mutation assay came back negative. Platelet count is a little better. He did receive IV iron a couple days ago. He is being followed by Dr. Martinez. 2. Sepsis secondary to peritonitis, improved. Patient has finished full course of antibiotics. 3. Status post right hemicolectomy and sigmoid resection secondary to perforated viscus with colostomy. Stable. Followed by Dr. Peres. 4. Paroxysmal atrial fibrillation. Continue with amiodarone. Follow up with Cardiology. 5. Diffuse B-cell lymphoma. The patient will follow up with Dr. Martinez in 2 weeks. 6. Hypertension. Continue with medications. 7. Physical deconditioning. Patient will be discharged to [facility]. 8. Acute respiratory failure requiring full ventilatory support, status post extubation. Stable on room air. HOSPITAL COURSE: Briefly, Mr. Watkins is an 86-year-old male who carries a past medical history of hypertension, hypercholesterolemia, prostate cancer, subdural hematoma requiring evacuation, neuropathy, presented to the ED at [place] with septic shock and abdominal pain. He has been worked up by his primary care physician for pain for several months. He saw his primary care physician on Saturday. He has not gotten any better. He had a history of loose stools and nausea and then developed severe abdominal pain. His pain had been mostly in the bilateral lower quadrants. It was described as aching and increasing in intensity. In the ED, he was found to need support with his blood pressure. He was hypotensive. He was started on fluid resuscitation with minimal response. He was found to have a temperature of 103 degrees with a left shift concerning a sepsis like picture. After a CT scan was obtained he was found to have free air. Dr. Peres was asked to evaluate the patient. He was still having complaints of abdominal pain. The patient was initiated on broad-spectrum antibiotics. He was found have a perforated hollow viscus and he underwent an exploratory laparotomy with an open right hemicolectomy and open sigmoid resection with end-colostomy by Dr. Carlos Peres. Prior to his surgery he was transferred from [place] to [facility]. He was continued on his Levophed drip. He continued to be intubated in the ICU after his surgery with a consult with Dr. Verduzco. The patient remained intubated and sedated until 01/11/2017, where he was successfully extubated by pulmonology. After his extubation he remained with an NG tube in place, as well as TPN for nutrition while he was in the ICU. He remained confused for several days. On 01/15/2017 Dr. Martinez was consulted. 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 They will follow the patient on an outpatient basis where he will require a PET scan. While he was in the ICU he also had an episode of atrial fibrillation with RVR where he required amiodarone drip. This did resolve. He was able to convert to p.o. amiodarone. His confusion slowly resolved. On 01/16 he was able to transfer out of the ICU to the [facility]. The patient was transferred from TPN to tube feeds. Mr. Watkins was able to come off his NG tube feedings as well as his TPN. He was tolerating p.o. on a GI soft diet with Glucerna shakes. The patient did develop some thrombocytosis. They felt it was likely reactive. Did notify Dr. Martinez. He recommended some IV iron infusion. He will follow up again on an outpatient basis. Physical therapy has been working with the patient. horticultural services supervisor was consulted for rehab placement. He has been having output from his colostomy. The patient was transferred from the ICU to the regular floor. He has finished his full course of IV antibiotics. His postoperative status has remained stable. He is appropriate for discharge to rehab today. He has been accepted to [facility]. VITAL SIGNS: Temperature is 97.7 degrees, heart rate 70, respirations 20, blood pressure 137/100, blood pressure is 99. DISCHARGE DIET: GI soft with Glucerna shakes. DISCHARGE MEDICATIONS: As per Dr. Lopez: 1. Tylenol 650 mg p.o. q.6 hours p.r.n. 2. Amiodarone 200 mg p.o. twice a day for 3 more days and then 200 mg p.o. daily for 2 weeks. 3. Norvasc 2.5 mg p.o. b.i.d. 4. Aspirin 81 mg p.o. daily. 5. Vitamin D2 80453 units p.o. q.7 days. 6. Fenofibrate 160 mg p.o. daily. 7. Avapro 500 mg p.o. at bedtime. 8. Prilosec 20 mg p.o. daily. 9. Livalo 10 mg p.o. daily. 10. Prednisone 10 mg p.o. daily for 3 days and then 5 mg for 3 more days. 11. Lyrica 100 mg p.o. b.i.d. 12. CoQ10 200 mg p.o. b.i.d. FOLLOW-UP: The patient is being discharged to [facility]. He will follow up with Dr. Caesar Castro in [address] Martinez in 2 weeks. Follow up for diffuse B-cell lymphoma as well as his Thrombocytosis. Dr. Peres in 2 weeks [address] Cagle with cardiology in 2 weeks. He can return to the ED for any worsening of symptoms. DISCHARGE TIME: Greater than 40 minutes. Dictated by MICHI Arriola for Nadir Lopez MD cc: MD Caesar Negron MD [facility]
== END 2017-01-28 14:29 ==
LOC: P.ED 21:52 → P.ICU 01-09 01:30 → ICU 01-09 02:21 → 3S 01-18 18:58 → 4N 01-26 14:08
PROVIDERS: ADMIT Internal Medicine; ATTEND Surgery